=== PATIENT | male | born 1955 | race African-American/Black ===

== ENCOUNTER 2025-08-22 15:49 | Inpatient (IN) | payer OTHER, SELFPAY ==
[2025-08-22] VITALS (10 sets, daily range): BP systolic 134–170; BP diastolic 53–75
--- NOTE | 2025-08-22 12:15 | ED.GENMED ---
History of Present Illness
<KIRSTEN العراقي - Last Filed: 08/22/25 15:37>
General
Chief Complaint: Catheter/Tube Problem
Source: patient
Exam Limitations: none
Time Seen by Provider: 08/22/25 12:06
Nursing documentation reviewed up to this point in time: agreed with
History of Present Illness
History of Present Illness:
Patient is a 69-year-old male past medical history of prostate cancer with prostatectomy radiation followed at [facility], insulin-dependent diabetes hypertension presents to the ER for evaluation. Patient had a catheter placed at [facility].
He reports he has a known stricture. Today he noticed blood around his catheter and pain. Prior to my exam nurse put a 20 [place]ones[place] catheter and however tried to flush it but there was a lot of clotting to the area. Nurse inserted a three-way
catheter while I was doing exam in the room with obvious hematuria. Patient now feels relieved however in his lower abdominal area.
He is not a blood thinners. He denies any fever chills nausea vomiting, back pain. He has urologist outside of this hospital.
Phy Exam
<KIRSTEN العراقي - Last Filed: 08/22/25 15:37>
General Physical Exam
General Presentation: no apparent distress
General age: appears stated age
General Skin: warm and dry
General Habitus: normal
General Mental: alert
General Hydration: appears well hydrated
Gastrointestinal Exam
Gastrointestinal Exam: non tender and soft
Genitourinary Exam Male
Exam Male: other (+ catheter draining gross hematuria )
Neurological Exam
Neurological Exam: alert and oriented x3
Musculoskeletal Exam
Musculoskeletal Exam: full ROM
Skin Exam
Skin Exam: normal color and warm/dry
Psychiatric Exam
Psychiatric Exam: normal mood/affect
Course
<KIRSTEN العراقي - Last Filed: 08/22/25 15:37>
Orders/Labs/Results
Orders:
Orders
08/22/25 11:30
Lidocaine 2% [Lidocaine Uro-Jet 2%] 1 syringe .ROUTE .STK-MED ONE
08/22/25 12:42
Ketorolac [Toradol] 15 mg IV NOW STA
Phenazopyridine HCl [Pyridium] 200 mg PO NOW STA
08/22/25 13:15
Complete Blood Count/With Diff Urgent
Comprehensive Metabolic Panel Urgent
08/22/25 13:18
Morphine Sulfate 2 mg IV NOW STA
08/22/25 13:43
CefTRIAXone [Rocephin] 1,000 mg IV NOW STA
08/22/25 13:52
Sterile Water [Sterile Water For Injection] 10 ml .ROUTE .STK-MED ONE
08/22/25 13:54
Electrocardiogram (*1) Stat
Reason for Study: Abdominal Pain
EKG- Treatment ONCE
0.9% Sodium Chloride 1000 ml [Nss] 1,000 ml IV BOLUS
08/22/25 14:09
Fentanyl Citrate/Pf [Sublimaze] 25 mcg IV [id number] PRN
HYDROmorphone [Dilaudid] 0.25 mg IV PACU-Q5MPRN PRN
HYDROmorphone [Dilaudid] 0.5 mg IV PACU-Q5MPRN PRN
Ondansetron Injectable [Zofran] 4 mg IV PACU-ONCEPRN PRN
Prochlorperazine [Compazine] 5 mg IV PACU-ONCEPRN PRN
Notify MD As Directed
Notify physician if: for SDS patients with known or suspected sleep obstructive sleep apnea, monitor in the
PACU.
Notify MD for any apneic/desaturation episodes
O2 Therapy [RESP] Urgent
Titrate/Wean O2 to maintain O2 sat greater than (%): 92
Special Instructions: -Provide supplemental oxygen to achieve O2 sat of 92% or greater.
-After 15 min, may wean O2 and discontinue if patient is able to maintain O2 sat of 92%
or greater during recovery period.
If patient is a discharge home, without oxygen therapy, notify anestheiologist if
unable to maintain O2 SAT of 92% or greater on room air for MD clearance.
08/22/25 14:15
Normosol (Mult Electrolytes) [Normosol-R/Plasmalyte-A] 1,000 ml IV PER PROTOCOL
08/22/25 Dinner
Clear Liquid
08/22/25 15:32
Admit/Transfer Patient As Directed
Co-Sign Provider:
Level of Care: Inpatient admission
Assign to:: Medical/Surgical
Physician / Group: hospitalist
Diagnosis: hematuria
Reason for Hospitalization: hematuria
Expected length of stay greater than two midnights?: Yes
ELOS- Estimated Length of Stay in days: 3
I certify the patient meets the requirements for IP care: Yes
08/22/25 15:33
HYDROmorphone [Dilaudid] 0.5 mg IV Q3HPRN PRN
diazePAM [Valium Injection] 5 mg IV Q4HPRN PRN
Activity As Directed
Activity Level: Bedrest
Catheter- Indwelling As Directed
Reason for insertion: Urology Determination
Catheter-Hand Irrigation As Directed
Solution:: Sterile 0.9% NaCl
Amount: 100-200cc
Frequency: prn
Reason for hand irrigation: clots/obstruction
Irrigate via:: Catheter directly
Continous Bladder Irrigation As Directed
Solution: Normal Saline
Keep urine: Clear
PRN Pain Medication Management As Directed
May give lesser potent ordered pain med per pt: Yes
preference::
Protocol:: Medication orders for pain may be administered in a
manner that supports deferring to patient preference
when the pt is:
- Requesting an ordered lesser potent pain medication.
Least to most potent pain medications are defined
as: acetaminophen < NSAID < tramadol < opioids
(morphine, oxycodone, hydromorphone).
- Requesting a lesser dose of the same medication IF
ORDERED.
- Requesting a less intrusive route of administration
if both routes are prescribed by the provider (PO <
IV).
08/22/25 15:34
Code Status As Directed
Resuscitation Status: Full Code
08/22/25 15:45
0.9% Sodium Chloride 1000 ml [Nss] 1,000 ml IV 80 mls/hr
08/22/25 16:00
CefTRIAXone [Rocephin] 1,000 mg IV Q24H
08/22/25 20:00
Docusate Sodium [Colace] 100 mg PO BID
08/23/25 06:00
Basic Metabolic Panel IN AM
Complete Blood Count/No Diff IN AM
08/23/25 08:00
Tamsulosin [Flomax] 0.4 mg PO DAILY
Abnormal Lab Results
08/22/25
13:15
RBC 4.62 L 10^6/uL
(4.70-6.10)
Hgb 12.3 L g/dL
(13.0-18.0)
Hct 36.9 L %
(39.0-52.0)
MCV 79.9 L fL
(80.0-94.0)
MCH 26.6 L pg
(27.0-31.0)
MPV 10.8 H fL
(7.4-10.4)
Abs Immat Gran (auto) 0.1 H 10^3/uL
(0-0.05)
Absolute Neuts (auto) 7.2 H 10^3/uL
(1.4-6.5)
Absolute Monos (auto) 1.2 H 10^3/uL
(0.1-0.6)
Immature Gran % 0.9 H %
(0-0.5)
Lymphocytes % 15.1 L %
(20.5-51.1)
Monocytes % 11.8 H %
(1.7-9.3)
Glucose 133 H mg/dl
(70-99)
08/22/25 13:15
08/22/25 13:15
Vital Signs
Initial and Last Documented VS:
Initial Vital Signs
Temp Pulse Resp BP Pulse Ox
97.4 F 95 20 170/74 100
08/22/25 09:18 08/22/25 09:18 08/22/25 09:18 08/22/25 09:18 08/22/25 09:18
Last Documented Vital Signs
Temp Pulse Resp BP Pulse Ox
97.4 F 95 20 170/74 100
08/22/25 09:18 08/22/25 09:18 08/22/25 09:18 08/22/25 09:18 08/22/25 12:17
Nuclear Medicine Technologist consulted with Physician
Nuclear Medicine Technologist consulted with physician?: Yes
Name of Physician Consulted: DR Manriquez
<Philly Manriquez, DO - Last Filed: 08/22/25 14:12>
Orders/Labs/Results
Orders:
Orders
08/22/25 11:30
Lidocaine 2% [Lidocaine Uro-Jet 2%] 1 syringe .ROUTE .STK-MED ONE
08/22/25 12:42
Ketorolac [Toradol] 15 mg IV NOW STA
Phenazopyridine HCl [Pyridium] 200 mg PO NOW STA
08/22/25 13:15
Complete Blood Count/With Diff Urgent
Comprehensive Metabolic Panel Urgent
08/22/25 13:18
Morphine Sulfate 2 mg IV NOW STA
08/22/25 13:43
CefTRIAXone [Rocephin] 1,000 mg IV NOW STA
08/22/25 13:52
Sterile Water [Sterile Water For Injection] 10 ml .ROUTE .K-MED ONE
08/22/25 13:54
Electrocardiogram (*1) Stat
Reason for Study: Abdominal Pain
EKG- Treatment ONCE
0.9% Sodium Chloride 1000 ml [Nss] 1,000 ml IV BOLUS
08/22/25 14:09
Fentanyl Citrate/Pf [Sublimaze] 25 mcg IV [id number] PRN
HYDROmorphone [Dilaudid] 0.25 mg IV PACU-Q5MPRN PRN
HYDROmorphone [Dilaudid] 0.5 mg IV PACU-Q5MPRN PRN
Ondansetron Injectable [Zofran] 4 mg IV PACU-ONCEPRN PRN
Prochlorperazine [Compazine] 5 mg IV PACU-ONCEPRN PRN
Notify MD As Directed
Notify physician if: for SDS patients with known or suspected sleep obstructive sleep apnea, monitor in the
PACU.
Notify MD for any apneic/desaturation episodes
O2 Therapy [RESP] Urgent
Titrate/Wean O2 to maintain O2 sat greater than (%): 92
Special Instructions: -Provide supplemental oxygen to achieve O2 sat of 92% or greater.
-After 15 min, may wean O2 and discontinue if patient is able to maintain O2 sat of 92%
or greater during recovery period.
If patient is a discharge home, without oxygen therapy, notify anestheiologist if
unable to maintain O2 SAT of 92% or greater on room air for MD clearance.
08/22/25 14:15
Normosol (Mult Electrolytes) [Normosol-R/Plasmalyte-A] 1,000 ml IV PER PROTOCOL
08/22/25 Dinner
Clear Liquid
08/22/25 15:32
Admit/Transfer Patient As Directed
Co-Sign Provider:
Level of Care: Inpatient admission
Assign to:: Medical/Surgical
Physician / Group: hospitalist
Diagnosis: hematuria
Reason for Hospitalization: hematuria
Expected length of stay greater than two midnights?: Yes
ELOS- Estimated Length of Stay in days: 3
I certify the patient meets the requirements for IP care: Yes
08/22/25 15:33
HYDROmorphone [Dilaudid] 0.5 mg IV Q3HPRN PRN
diazePAM [Valium Injection] 5 mg IV Q4HPRN PRN
Activity As Directed
Activity Level: Bedrest
Catheter- Indwelling As Directed
Reason for insertion: Urology Determination
Catheter-Hand Irrigation As Directed
Solution:: Sterile 0.9% NaCl
Amount: 100-200cc
Frequency: prn
Reason for hand irrigation: clots/obstruction
Irrigate via:: Catheter directly
Continous Bladder Irrigation As Directed
Solution: Normal Saline
Keep urine: Clear
PRN Pain Medication Management As Directed
May give lesser potent ordered pain med per pt: Yes
preference::
Protocol:: Medication orders for pain may be administered in a
manner that supports deferring to patient preference
when the pt is:
- Requesting an ordered lesser potent pain medication.
Least to most potent pain medications are defined
as: acetaminophen < NSAID < tramadol < opioids
(morphine, oxycodone, hydromorphone).
- Requesting a lesser dose of the same medication IF
ORDERED.
- Requesting a less intrusive route of administration
if both routes are prescribed by the provider (PO <
IV).
08/22/25 15:34
Code Status As Directed
Resuscitation Status: Full Code
08/22/25 15:45
0.9% Sodium Chloride 1000 ml [Nss] 1,000 ml IV 80 mls/hr
08/22/25 16:00
CefTRIAXone [Rocephin] 1,000 mg IV Q24H
08/22/25 20:00
Docusate Sodium [Colace] 100 mg PO BID
08/23/25 06:00
Basic Metabolic Panel IN AM
Complete Blood Count/No Diff IN AM
08/23/25 08:00
Tamsulosin [Flomax] 0.4 mg PO DAILY
Abnormal Lab Results
08/22/25
13:15
RBC 4.62 L 10^6/uL
(4.70-6.10)
Hgb 12.3 L g/dL
(13.0-18.0)
Hct 36.9 L %
(39.0-52.0)
MCV 79.9 L fL
(80.0-94.0)
MCH 26.6 L pg
(27.0-31.0)
MPV 10.8 H fL
(7.4-10.4)
Abs Immat Gran (auto) 0.1 H 10^3/uL
(0-0.05)
Absolute Neuts (auto) 7.2 H 10^3/uL
(1.4-6.5)
Absolute Monos (auto) 1.2 H 10^3/uL
(0.1-0.6)
Immature Gran % 0.9 H %
(0-0.5)
Lymphocytes % 15.1 L %
(20.5-51.1)
Monocytes % 11.8 H %
(1.7-9.3)
Glucose 133 H mg/dl
(70-99)
08/22/25 13:15
08/22/25 13:15
Vital Signs
Initial and Last Documented VS:
Initial Vital Signs
Temp Pulse Resp BP Pulse Ox
97.4 F 95 20 170/74 100
08/22/25 09:18 08/22/25 09:18 08/22/25 09:18 08/22/25 09:18 08/22/25 09:18
Last Documented Vital Signs
Temp Pulse Resp BP Pulse Ox
97.4 F 95 20 170/74 100
08/22/25 09:18 08/22/25 09:18 08/22/25 09:18 08/22/25 09:18 08/22/25 12:17
<KIRSTEN العراقي - Last Filed: 08/22/25 15:37>
MDM/Problems Addressed
Differential Diagnosis Includes:
not limited to: urinary retention, hematuria, UTI
MDM/Problems Addressed:
Patient is a 6-year-old male history of prostate cancer followed at [facility] [place] [facility] diabetes presents with a Ingram in place history of stricture presents for hematuria clotting bladder retention despite Ingram catheter. Three-way Ingram was inserted
however despite manual irrigation patient keeps clotting urine unable to pass. Patient denies any fever or chills he is afebrile here. Case reviewed urology Dr. Flores who evaluated patient at bedside. As per urology patient will need to go to the
OR for clot evacuation cystoscopy. IV Rocephin ordered as per urology patient is afebrile with a normal white count stable him in a 12.3 he is not anticoagulated, normal chemistries.
<KIRSTEN العراقي - Last Filed: 08/22/25 15:37>
*Pulse Oximetry
SaO2: 100
Oxygen Mode of Delivery: Room air
Patient hypoxic: no
*Critical Care Note
Total Time (30-74mins, 75-104mins- exclusive of procedures): Not Applicable
<KIRSTEN العراقي - Last Filed: 08/22/25 15:37>
Patient Management
Discussion with other providers: Sales Representative [employer]ing [employer] (DR Ansari )
ED Attending Note
<KIRSTEN العراقي - Last Filed: 08/22/25 15:37>
-
Portions of this chart may have been created with voice recognition software.� Occasional wrong word or��sound alike� substitutions may have occurred due to the inherent limitations of voice recognition software.
<Philly Manriquez DO - Last Filed: 08/22/25 14:12>
ED Attending Note
Patient seen and examined by attending physician: Yes
I performed the substantive portion of visit, reviewed & personally made and approve the management plan that is documented in note by myself or MONO.: Yes
I performed a history and physical exam of patient and discussed management with resident, I reviewed resident's note and agree with documented findings and plan of care.: Yes
ED Attending Note:
69-year-old male with history of prostate cancer status post radiation with known history of urethral stricture presenting to the emergency department for hematuria. Patient reports a week ago he went to [place] and had a catheter placed. Does
note that he was started on some medication at that time. He is not on any blood thinners. Today noticed that he was having blood from the urine. He was also decreased output from the catheter with discomfort. Vital signs on arrival significant
for hypertension.
On exam, patient is in no acute distress. Noted to have significant hematuria in Ingram catheter bag. Initially seen and evaluated by nurse practitioner. Catheter was replaced for CBI due to concern of obstruction from blood clot and incomplete
emptying. Per nursing staff, difficulty with evacuation of clots despite multiple attempts at irrigation. CBI was subsequently stopped and case discussed with urology. Urology to bedside, was able to evacuate some more clots, however ultimately
secondary to amount of bleeding that patient is having with degree of clotting, recommending operative management. Patient at this time is hemodynamically stable, reassuring hemoglobin. Patient is in agreement with plan, starting antibiotics and
taking to the OR for urgent management with subsequent hospitalist admission for continued hemodynamic monitoring and urine output monitoring
Discharge Plan
Departure
Patient Disposition: Admit
Date of Disposition: 08/22/25
Time of Disposition: 13:49
Admit to: Med/Surg
Admit to doctor: hospitalist
Presentation/result/management discussed w/ accepting MD/DO: Hospitalist
Patient with high blood pressure during this ER visit?: Yes
Condition: Fair
Covid-19: Not Applicable
Discharge Problem:
Hematuria
Interventions
Interventions:
*Risk Screen - Suicide Last Done: 08/22/25 09:18
*General Assessment Last Done: 08/22/25 09:18
*Neglect/Abuse Screening Last Done: 08/22/25 09:18
*Nursing Disposition Last Done: 08/22/25 14:32
OK-Kzzdmw-Icshhjbxqy Assessment Last Done: 08/22/25 12:20
ED-Male Genitourinary Assessment Last Done: 08/22/25 12:20
[2025-08-22] MEDS: MORPHINE SULFATE 2 MG IV (13:20)
[2025-08-22 13:22] LABS: Hematocrit 36.9 % (39.0-52.0); Hemoglobin 12.3 g/dL (13.0-18.0); Mean Corp Hgb Conc. 33.3 g/dL (33.0-37.0); Mean Corpuscular Volume 79.9 fL (80.0-94.0); Nucleated Red Blood Cells % 0 % (-); Platelet Count 275 10^3/uL (130-400); Red Cell Dist. Width 13.4 % (11.5-14.5)
[2025-08-22 13:38] LABS: ALT (SGPT) 18 U/L (0-50); AST (SGOT) 20 U/L (17-59); Albumin 3.9 g/dl (3.5-5.0); Alkaline Phosphatase 81 U/L (38-126); Blood Urea Nitrogen 17 mg/dl (9-20); Calcium 9.3 mg/dl (8.4-10.2); Carbon Dioxide 24 mmol/L (22-30); Chloride 106 mmol/L (98-107); Glucose 133 mg/dl (70-99); Potassium 4.4 mmol/L (3.5-5.1); Sodium 136 mmol/L (135-145); Total Protein 7.2 g/dl (6.3-8.2); eGFR > 60.00
--- NOTE | 2025-08-22 13:47 | CON.MD ---
Consultation - Medical
-
see dictated note
pt with hx of RRP with dr falcon and subsequent XRT- known stx
has been in and out of [place] with difficulty urinating- never been to [facility]
danielle has been in- today developed gross hematuria and clot obstruction
unable to clear clot in ER and initiate CBI
to OR for clot evac
high risk nature of procedure reviewed [facility] since we have no records and pt very poor historian
Consultation
-
Date/Time Consultation Requested: 08/22/25 at 1:30
Date/Time Consultation Performed: 08/22/25 at 1:30
Requesting Provider: ER
Performing Provider: Dr Ansari
Reason for Consultation: clot retention
[2025-08-22] MEDS: ROCEPHIN 1000 MG IV (14:01)
[2025-08-22] MEDS: NSS 1000 IV ×2 (14:02→17:54)
--- NOTE | 2025-08-22 14:44 | HPS.HSE ---
Addendum entered and electronically signed by Richard Hunter MD 08/22/25 18:06:
This is an addendum to the H&P written by Chelsey Allison on 08/14/2025. �Patient seen and examined independently with resident.
69-year-old male past medical history of prostate cancer status post prostatectomy in 2012 and radiation, BPH, urinary retention with Danielle placed last week, hypertension, diabetes, hyperlipidemia, presenting with hematuria with suprapubic pain.
�Danielle catheter was obstructed with clot.
Danielle catheter was changed in emergency room. �CBI was unable to performed. �Patient was taken to the operating room for clot evacuation with resolution of hematuria. Now on CBI with some intermittent redness.�
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 �Check urinalysis. �Urology following.
Original Note:
Family Physician
-
Family Physician:
Chief Complaint
-
hematuria
History of Present Illness
Patient is a 69-year-old male past medical history of prostate cancer with prostatectomy and radiation followed at [place], insulin-dependent diabetes hypertension presents to the ER for evaluation for hematuria. He was dx with prostate cancer in
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 Last radiation in April 2025. Patient is under care of urologist at [facility], hx of radical prostatectomy and has undergone subsequent XRT. He has been in and out of [facility]
because of urinary difficulty. Patient notes that today he noticed blood around his catheter and was experiencing pain. In the ED catheter was placed with obvious gross hematuria and clot obstruction. He is not on AC. Denies dizziness, headache,
shortness of breath. Patient was seen by urologist in the ED and they were unable to clear the clot in the ER or initiate CBI. Patient was taken to the OR for clot evacuation.
Medical History
Past Medical History
Past Medical History: Reports Other (prostate cancer with prostatectomy radiation followed at [facility], insulin-dependent diabetes hypertension )
Past Surgical History: Reports Other (XRT )
Social History
Tobacco: Non-smoker
Alcohol: None
Drug: None
Employment: Retired
Family History
Family History: Not pertinent
Allergies / Home Medications
Allergies reflects when Allergies were last updated in [employer].
Home Medications with original date entered in [employer]
Allergy/Medication List:
Allergies
Allergy/AdvReac Type Severity Reaction Status Date / Time
No Known Allergies Allergy Verified 08/22/25 09:22
Review of Systems
-
History Source: Patient
A 12 point ROS was completed and negative except as noted: Yes
Physical Exam
Vital Signs
Vital Signs
Temp Pulse Resp BP Pulse Ox
97.4 F 95 20 170/74 100
08/22/25 09:18 08/22/25 09:18 08/22/25 09:18 08/22/25 09:18 08/22/25 12:17
Physical Exam
General: Comfortable and Conversant
HEENT: NormoCephalic and Anicteric
Respiratory: Clear
Cardiac: S1/S2 and Regular Rhythm
GI: Soft, Non Tender and Non Distended
Genito-urinary: Danielle (hematuria and clots )
Skin: Warm and Dry
Neuro: AO x 3
Hematologic/Lymphatic: No Lymphadenopathy
Psych: Calm
Laboratory Results
-
08/22/25 13:15
08/22/25 13:15
Laboratory Results
Total Bilirubin 0.6 mg/dl (0.2-1.3) 08/22/25 13:15
AST 20 U/L (17-59) 08/22/25 13:15
ALT 18 U/L (0-50) 08/22/25 13:15
Alkaline Phosphatase 81 U/L (38-126) 08/22/25 13:15
Data Reviewed
-
Lab Data: Labs Reviewed by me and Discussed with Physician
Impression/Plan
-
IMPRESSION:
Hematuria
Acute on chronic urinary retention
History of prostate cancer
History of hypertension
PLAN:
Hematuria
History of XRT for prostate cancer
Suspect injury from Danielle catheter vs radiation complication vs mass.
Hemodynamically stable. HB 12.3 (no records of previous labs)
Danielle placed in ED, +gross hematuria and clots
Failed to evacuate the clots and initiate CBI
Urologist aware. Pt taken to OR for clot evacuation
Monitor H&H
Transfuse PRBC if sudden drop in hemoglobin
IV dilauded for pain control
Check UA
Acute on chronic urinary retention on chronic danielle
ER placed in the ED
Continue oxybutynin, tamsolusin post surgery
Monitor urine output
History of prostate cancer
Last radiation in Apr 2025 at [facility]
History of HLD
Continue lipitor
Hypertension
continue valsartan
Type 2 DM
Hold metformin
Sliding scale
SCD
Full code
Diabetic diet
--- NOTE | 2025-08-22 15:30 | W.IMMPOSTOP ---
Surgical Immed Post Op Note
-
Primary Surgeon:
yg
Assisting Surgeon:
Pre-op Diagnosis:
clot retention
Post-op Diagnosis:
clot retention due to xrt cystitis
Procedure Performed:
cysto/clot evac/fulguration
Anesthesia Type:
gen
Specimen / Cultures:
none
Estimated Blood Loss:
250cc- 200 cc of old clot
Complications:
none
Operative Findings:
dilated BN contracture/multiple bleeding sites/large amount of clot
to pacu- imu in stable condition
[2025-08-22 15:41] LABS: Glucose - Point of Care 92 mg/dl (70-99)
--- NOTE | 2025-08-22 17:20 | W.PN.UPDATE ---
Update Note
Progress Note Update
Saw patient in PACU, 200-250 cc of old clot evacuated, tolerated the surgery well. Transferred patient to IMU from PACU. CBI has been initiated. [place] tinge urine draining in danielle bag. Hemodynamically stable. Monitor HH. IV Dilaudid for pain prn
for pain control.
--- NOTE | 2025-08-22 17:30 | PTCARENOTE ---
Patient received from PACU. VICKI VERMA. Admission done and 2 RN skin check performed. Admission done, patient with home meds instructed to send home with daughter. Three way danielle in place, CBI running. Fruit punch colored urine, titrating CBI to
clear out blood tinged. NSS @ 100mL/hr. ABX to continue tomorrow. Call rg in reach.
[2025-08-22] MEDS: DILAUDID 0.5 MG IV ×2 (17:54→23:51)
[2025-08-22] MEDS: VALIUM INJECTION 5 MG IV (21:13)
[2025-08-22] MEDS: COLACE 100 MG PO (21:13)
[2025-08-22 21:52] LABS: Glucose - Point of Care 186 mg/dl (70-99)
[2025-08-23] VITALS (12 sets, daily range): BP systolic 100–141; BP diastolic 48–72
--- NOTE | 2025-08-23 01:04 | PTCARENOTE ---
Assumed care of Pt from day RN, walking rounds done CBI flowing nicely with light punch color no clots at that time. Shortly after Pt having complaints of feeling like his bladder was full and he 'had to pee'. CBI slow flowing with darker red
output. CBI flushed per protocol, one long clot expelled. CBI bag opened to flush and keep line patent. Pt given PRN medication for spasm and pain. Assessments to follow, Pt CBI remains patent at this time with lightly ping tinge no clots seen at
this time. Pt appearing to be resting comfortable at this time. respiration even unlabored.
[2025-08-23] MEDS: VALIUM INJECTION 5 MG IV ×5 (01:34→20:35)
[2025-08-23] MEDS: DILAUDID 0.5 MG IV ×3 (02:54→23:20)
[2025-08-23] MEDS: NSS 1000 IV (02:54)
--- NOTE | 2025-08-23 03:58 | PTCARENOTE ---
Pt having pain and discomfort at times. PRN medication given per orders. Assessment care and vitals as charted.
[2025-08-23 05:40] LABS: Hematocrit 29.7 % (39.0-52.0); Hemoglobin 9.5 g/dL (13.0-18.0); Mean Corp Hgb Conc. 32.0 g/dL (33.0-37.0); Mean Corpuscular Volume 81.4 fL (80.0-94.0); Nucleated Red Blood Cells % 0 % (-); Platelet Count 238 10^3/uL (130-400); Red Cell Dist. Width 13.3 % (11.5-14.5)
[2025-08-23 05:43] LABS: Blood Urea Nitrogen 13 mg/dl (9-20); Calcium 8.5 mg/dl (8.4-10.2); Carbon Dioxide 26 mmol/L (22-30); Chloride 106 mmol/L (98-107); Estimated Creatinine Clearance 73 ml/min; Glucose 134 mg/dl (70-99); Potassium 4.8 mmol/L (3.5-5.1); Sodium 135 mmol/L (135-145); eGFR > 60.00
--- NOTE | 2025-08-23 06:28 | W.PN.URO.CBU ---
Today's Communication / Plan
-
continue CBI
Assessment / Plan
-
met prostate cancer
retention/hematuria and xrt cystitis
pt's urine was clear after procedure- now again with hematuria- not uncommon with xrt
will continue cbi/antibx/hold any blood thinners
trend hgb and wbc
if hematuria continues over next 24-48hrs- would attempt repeat cysto and fulguration- will make npo after midnight tonight
check psa with am labs
Diagnosis
-
Date of Service: August 23, 2025
-
Patient Diagnosis:
xrt cystitis/hematuria
met prostate cancer
Post Op Day:
cysto/clot evac and fulguration 08/22
Subjective
-
pt comfortable but occ spasms
urine was clear in pacu- last evening again developed hematuria
wbc up/hgb down
Objective
-
Vital Signs
Temp Pulse Resp BP Pulse Ox
98.5 F 65 16 126/59 97
08/23/25 03:00 08/23/25 04:00 08/23/25 04:00 08/23/25 04:00 08/23/25 04:00
Intake and Output
08/21/25 08/22/25 08/23/25
06:59 06:59 06:59
Intake Total 580 / 580
Output Total 950 / 950
Balance -370 / -370
Intake:
Oral fluids 480 / 480
IV fluids (Total) 100 / 100
NSS 100 / 100
Output:
Urine, Danielle 300 / 300
True Urine Output from CBI 650 / 650
Laboratory Results
08/23/25 04:40
08/23/25 04:40
Review of Systems
-
Constitutional: Fatigue
Respiratory: No Symptoms
Cardiac: No Symptoms
Abdomen/GI: No Symptoms
: Other (hematuria and bladder spasms)
Physical Exam
-
General - no acute distress
Abdomen - soft, non-tender
Genitalia - [address]
--- NOTE | 2025-08-23 07:27 | PTCARENOTE ---
Dr Ansari at bed side during morning rounds, updates from slot shift supervisor given. Pt CBI to continue at this time. Pt CBI putting out red/punch to light punch color with 1-2 clots over night. Pt now on regular diet will be NPO at midnight incase
'hematuria continues over next 24-48hrs- would attempt repeat cysto and fulguration' Per Dr Ansari's report. Pt H&H dropping this AM. Dr. Ansari and KIRSTEN made aware, IVF stopped.
[2025-08-23 07:56] LABS: Glucose - Point of Care 128 mg/dl (70-99)
[2025-08-23] MEDS: NOVOLOG FLEXPEN-LOW RESISTANCE SC ×2 (07:58→16:57)
[2025-08-23 08:11] LABS: Iron 45 ug/dl (49-181)
[2025-08-23 08:20] LABS: Total Iron Binding Capacity 271 ug/dl (261-462)
--- NOTE | 2025-08-23 08:23 | W.PN.HOSP.TC ---
Today's Communication/Plan
-
see PN
Assessment / Plan
Assessment / Plan
69yo M with PMHx of DM, HTN, HLD, prostate CA s/p resection appr 10 years ago, then recurrence and RT course in april 2025 developed acute urinary retention, that initially self resolved while admitted to [place] 1 week ago, then redeveloped it at
home and had Jimenez placed in [place]. Later noticed absent flow in Jimenez and urine coming out around it with subsequent beeding, so can back to the hospital, was started on Keflex, however due to continued symptoms presented to ED. found
hematuria with clot obstructing Jimenez. Catheter replaced and CBI started. Had cystoscopy on admission on 08/23/25 with clot evacuation and fulguration of bleeding points.
A/P:
#Acute urinary retention
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
#Possible CAUTI
UA still pending
CBI as per Urology
Watch for catheter drain, if continues to bleed or re-obstrcution - then might need repeated cystoscopy as per Urology
Serial H&H and transfuse as needed
COnt Ceftriaxone
Pyridium and Oxybutinin due to bladder spasms and pain
Tamsulosin
#ANJU
IV iron
#HLD
#Essential HTN
cont home meds
#DM type 2 with unspecified complications
Accuchecks, Insulin SS, DM diet
hold metformin
DVT ppx SCDs
FUll code
I have spent at least 58min reviewing chart, test results, communication with consultants and providing direct patient care
Anticipated Discharge: > 48 hours
Subjective/Interval History
-
Date of Service: August 23, 2025
Objective Data
-
Labs:
Laboratory Results
08/23/25 08/23/25
04:40 18:00
WBC 15.5 H
Hgb 9.5 L D Pending
Hct 29.7 L Pending
Plt Count 238
Sodium 135
Potassium 4.8
Chloride 106
Carbon Dioxide 26
BUN 13
Creatinine 1.0
Glucose 134 H
Calcium 8.5
Vital Signs:
Vital Signs
Temp Pulse Resp BP Pulse Ox
97.9 F 76 17 100/48 94
08/23/25 07:12 08/23/25 06:00 08/23/25 06:00 08/23/25 06:00 08/23/25 06:00
I&O
08/22/25 08/23/25 08/24/25
06:59 06:59 06:59
Intake Total 3180 / 3180
Output Total 950 / 950
Balance 2230 / 2230
Review of Systems
-
History Source: Patient
All other systems: Reviewed and negative
Genitourinary: Reports Bleeding and Other (bladder spasms and pain)
Physical Exam
-
General: No Apparent Distress and Comfortable
HEENT: Normocephalic
Respiratory: Clear to Auscultation
Cardiac: Regular Rhythm
Genito-urinary: Bloody Urine and Continuous Bladder Irrigation
Skin: Warm
Neuro: Awake, Alert, Oriented and AO x 3
Psych: Calm
[2025-08-23] MEDS: FLOMAX 0.4 MG PO (08:35)
[2025-08-23] MEDS: COLACE 100 MG PO ×2 (08:35→20:34)
[2025-08-23] MEDS: LIPITOR 20 MG PO (08:35)
[2025-08-23] MEDS: DIOVAN 160 MG PO (08:35)
--- NOTE | 2025-08-23 08:55 | PTCARENOTE ---
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 Patient resting comfortably in bed. AAO, VSS. No events noted overnight. Complaints of intermittent pain at this time around the bladder, see NOV. CBI running at a fast steady rate but continues with clots and
the need for periodic irrigation. NSS discontinued. Patient started on regular diet. With current trend, for possible OR again in the AM for reinspection. No other testing scheduled at this time. Call rg in reach.
[2025-08-23 09:22] LABS: Glycohemoglobin (HgbA1c) 7.0 % (4.0-5.9)
[2025-08-23 09:35] LABS: Ferritin 53.1 ng/ml (17.9-464.0)
[2025-08-23 10:06] LABS: Folate 7.1 ng/ml (2.76-20); Vitamin B12 245 pg/ml (239-931)
[2025-08-23 12:00] LABS: Glucose - Point of Care 181 mg/dl (70-99)
[2025-08-23] MEDS: NOVOLOG FLEXPEN-LOW RESISTANCE 1 UNITS SC (13:56)
[2025-08-23] MEDS: FERRLECIT 110 MG IV (13:56)
[2025-08-23] MEDS: ROCEPHIN 1000 MG IV (13:56)
[2025-08-23] MEDS: STERILE WATER FOR INJECTION 10 ML IV (13:57)
[2025-08-23 17:03] LABS: Glucose - Point of Care 116 mg/dl (70-99)
[2025-08-23 18:25] LABS: Hematocrit 29.0 % (39.0-52.0); Hemoglobin 9.4 g/dL (13.0-18.0)
[2025-08-23] MEDS: FLUSH (NSS) 2 FLUSH IV (19:08)
[2025-08-23] MEDS: DITROPAN 5 MG PO (20:34)
[2025-08-23 21:46] LABS: Glucose - Point of Care 160 mg/dl (70-99)
--- NOTE | 2025-08-23 23:49 | PTCARENOTE ---
Pt c/o pain/pressure in bladder. 3way danielle draining well. Urine punch colored with orange hues from pyridium. Pain relieved with IV valium. IV dilaudid given for breakthrough pain.
[2025-08-24] VITALS (16 sets, daily range): BP systolic 20–151; BP diastolic 49–66
[2025-08-24] MEDS: VALIUM INJECTION 5 MG IV (02:14)
[2025-08-24 02:46] LABS: Hematocrit 27.8 % (39.0-52.0); Hemoglobin 9.1 g/dL (13.0-18.0)
[2025-08-24] MEDS: DILAUDID 0.5 MG IV ×2 (03:15→22:38)
[2025-08-24 03:43] LABS: PSA, Total - Diagnostic < 0.06 ng/ml (0.0-4.0)
--- NOTE | 2025-08-24 07:38 | W.PN.URO.CBU ---
Today's Communication / Plan
-
CT and OR
Assessment / Plan
-
met prostate cancer
retention/hematuria and xrt cystitis
pt's urine was clear after procedure- now again with hematuria- not uncommon with xrt
slow drift of hgb- no need for acute transfusion now- but likely will be needed
reviewed options with pt- for CT this am and return to OR for repeat attempt at fulguration- if this is unsuccesful- may need to consider transfer to [facility]
discussed again difficult nature of his condition along with risks, benefits and alternatives
Diagnosis
-
Date of Service: August 24, 2025
-
Patient Diagnosis:
xrt cystitis/hematuria
met prostate cancer
Post Op Day:
cysto/clot evac and fulguration 08/22
Subjective
-
pt urine remains bloody on high rate cbi
hgb with slow drift down
still with sig bladder spasms- discomfort
Objective
-
Vital Signs
Temp Pulse Resp BP Pulse Ox
97.9 F 86 21 114/57 94
08/24/25 07:20 08/23/25 22:00 08/23/25 22:00 08/23/25 22:00 08/24/25 01:05
Intake and Output
08/23/25 08/24/25 08/25/25
06:59 06:59 06:59
Intake Total 3180 / 3180 1310 / 1310
Output Total 950 / 950 2500 / 2500 -540 / -540
Balance 2230 / 2230 -1190 / -1190 540 / 540
Intake:
Oral fluids 1680 / 1680 1200 / 1200
IV fluids (Total) 1500 / 1500
NSS 100 / 100
IV piggybacks 110 / 110
Output:
Urine, Ingram 300 / 300
True Urine Output from I 650 / 650 2500 / 2500 -540 / -540
Laboratory Results
08/23/25 04:40
Review of Systems
-
Constitutional: Fatigue
Respiratory: No Symptoms
Cardiac: No Symptoms
Abdomen/GI: Abdominal Pain (spasms)
Physical Exam
-
General - no acute distress
Abdomen -obese- nontender
[2025-08-24] MEDS: VITAMIN B-12 1000 MCG PO (07:44)
[2025-08-24] MEDS: DIOVAN 160 MG PO (07:44)
[2025-08-24] MEDS: DITROPAN 5 MG PO ×2 (07:44→19:06)
[2025-08-24] MEDS: COLACE 100 MG PO ×2 (07:44→19:06)
[2025-08-24] MEDS: FLOMAX 0.4 MG PO (07:45)
[2025-08-24] MEDS: LIPITOR 20 MG PO (07:45)
[2025-08-24 07:55] LABS: Glucose - Point of Care 144 mg/dl (70-99)
[2025-08-24] MEDS: NOVOLOG FLEXPEN-LOW RESISTANCE SC ×2 (08:30→13:43)
--- NOTE | 2025-08-24 08:31 | PTCARENOTE ---
Pt AAAOx3,lungs diminished on 1 liter at 95%. 24 3 [address] with CBI at bag 30 light punch color, pt denies pain at this time. Pills given with sip of water. To CT scan and back. Awaiting OR
--- NOTE | 2025-08-24 09:36 | W.PN.UPDATE ---
Update Note
Progress Note Update
pt went for AM CT
unfortunately reveals suspected bladder perforation
reviewed with pt- proceed to OR for cysto and prob open exploration
very high risk nature of this procedure reviewed including
[2025-08-24 09:54] LABS: Hematocrit 28.3 % (39.0-52.0); Hemoglobin 9.2 g/dL (13.0-18.0)
--- NOTE | 2025-08-24 10:06 | PTCARENOTE ---
Pt twas taken to PACU in bed with monitors. [place]inoy in cup in belongings [facility]. Pt stated that braclet in r hand can not be removed
--- NOTE | 2025-08-24 10:34 | W.PN.HOSP.TC ---
Today's Communication/Plan
-
cont Ceftriaxone pending OR
ICU
serial H&H
Assessment / Plan
Assessment / Plan
69yo M with PMHx of DM, HTN, HLD, prostate CA s/p resection appr 10 years ago, then recurrence and RT course in april 2025 developed acute urinary retention, that initially self resolved while admitted to [place] 1 week ago, then redeveloped it at
home and had Jimenez placed in [place]. Later noticed absent flow in Jimenez and urine coming out around it with subsequent beeding, so can back to the hospital, was started on Keflex, however due to continued symptoms presented to ED. found
hematuria with clot obstructing Jimenez. Catheter replaced and CBI started. Had cystoscopy on admission on 08/23/25 with clot evacuation and fulguration of bleeding points, later found Acute retroperitoneal urinary bladder rupture
A/P:
#Acute urinary retention
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
#Possible CAUTI
#Acute retroperitoneal urinary bladder rupture
CT on 08/24/25 - with a large amount of air and a small amount of fluid in the extraperitoneal space anterior to the urinary bladder tracking anteriorly and superiorly to the umbilicus along the median umbilical ligament (urachus).
To OR as per Urology. ICU afterwards
Serial H&H and transfuse as needed
COnt Ceftriaxone
Pyridium and Oxybutynin due to bladder spasms and pain
Tamsulosin
#ANJU
IV iron
#HLD
#Essential HTN
cont home meds
#DM type 2 with unspecified complications
Accuchecks, Insulin SS, DM diet
hold metformin
#b/l gynecomastia
advise weight loss
#bl adrenal adenoma
outpatient w/u for hormonal excess
#Diverticulosis w/o diverticulitis
high fiber diet
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
measuring 2.6 x 1.3 x 1.8 cm in size which could be a bone infarct
DVT ppx SCDs
FUll code
I have spent at least 60min critical care time reviewing chart, test results, communication with consultants and providing direct patient care
Anticipated Discharge: > 48 hours
Subjective/Interval History
-
Date of Service: August 24, 2025
Objective Data
-
Labs:
Laboratory Results
08/24/25 08/24/25 08/24/25
02:28 09:49 18:00
Hgb 9.1 L 9.2 L Pending
Hct 27.8 L 28.3 L Pending
Vital Signs:
Vital Signs
Temp Pulse Resp BP Pulse Ox
97.9 F 91 26 151/66 94
08/24/25 07:20 08/24/25 08:00 08/24/25 08:00 08/24/25 08:00 08/24/25 08:59
I&O
08/23/25 08/24/25 08/25/25
06:59 06:59 06:59
Intake Total 3180 / 3180 1310 / 1310
Output Total 950 / 950 2500 / 2500 -40 / -40
Balance 2230 / 2230 -1190 / -1190 40 / 40
Review of Systems
-
History Source: Patient
All other systems: Reviewed and negative
Abdomen/GI: Reports Abdominal Pain
Physical Exam
-
General: No Apparent Distress
HEENT: Normocephalic
GI: Soft, Tender and Distended
Musculoskeletal: No Clubbing, No Cyanosis and No Edema
Neuro: Awake, Alert, Oriented and AO x 3
Psych: Calm
[2025-08-24 11:06] LABS: B.E. - POC -2.2 mmol/L; Glucose - POC 144 mg/dl (70-99); HCO3 - POC 22 mmol/L (21-28); Hematocrit - POC 25 % PCV (42-52); Hemodilution- POC No; Hemoglobin Calculated - POC 8.6; Ionized Calcium - POC 1.25 mmol/L (1.15-1.33); Lactate - POC 1.06 mmol/L (0.36-0.75); O2 Saturation %Calculated-POC 99.4 % (94-98); PCO2 - POC 37 mmHg (35-48); PO2 - POC 154 mmHg (83-108); Potassium - POC 3.8 mmol/L (3.5-5.1); Sodium - POC 136 mmol/L (136-145); Specimen Type - POC Arterial; pH - POC 7.39 (7.35-7.45)
--- NOTE | 2025-08-24 11:30 | CON.INTV ---
Consultation
Consultation Request
Date/Time Consultation Requested: 08/24/2025928
Date/Time Consultation Performed: 08/24/2025957
Requesting Provider: Dr. Lazar
Performing Provider: Dr. Whaley
Reason for Consultation: Bladder perforation
Medical History
-
Chief Complaint: Bleeding around Ingram catheter with pain
History of Present Illness:
69-year-old male with a past medical history of DM type II, hypertension, hyperlipidemia and prostate cancer s/p radical prostatectomy complicated by recurrence s/p XRT in April 2025 with chronic Ingram who presented with blood around his Ingram
catheter and pain. The Ingram catheter was exchanged in the ER however CBI was unable to be performed. Urology consulted who brought the patient to the OR and cystoscopy with clot evacuation and fulguration of bleeding points was performed.
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 Patient was managed on the floor with urology following, and patient was getting CBI. Today on 08/24, patient's urine was becoming bloody with downtrending hemoglobin. CT
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 Patient brought back to the OR and a cystoscopy with clot evacuation with bladder neck fulguration and open
exploration/repair of bladder dome perforation was performed with suprapubic tube placement. Patient received 1 unit PRBC transfusion in the OR. Patient transferred to the ICU postoperatively, and senior research fellow service consulted for additional
management/recommendations.
When I saw the patient he was resting in bed on CBI. Currently on 2 L/min nasal cannula and breathing comfortably. Patient's , Fartun, and daughter were both present at bedside, and all questions were answered. Patient currently denies chest
pain, SOB, abdominal pain, fevers or chills.
PMHx: DM type II, hypertension, hyperlipidemia, prostate cancer s/p resection approximately 10 years ago complicated by recurrence s/p XRT in April 2025
PSHx: Radical prostatectomy, questionable urethral stent placement
Past Medical History
Past Medical History: Other (Above as per HPI)
Past Surgical History: Other (Above as per HPI)
Social History
Tobacco: Non-smoker
Alcohol: None
Drug: None
Personal: ( = Fartun)
Living: With Family
Employment: Retired
Family History
Family History: Reviewed & Not Pertinent
Allergies / Home Medications
Allergies
Allergy/AdvReac Type Severity Reaction Status Date / Time
No Known Allergies Allergy Verified 08/22/25 09:22
Home Medications
�Medication �Instructions �Recorded �Confirmed �Last Taken �Type
atorvastatin 20 mg tablet 20 mg PO DAILY 08/22/25 Unknown History
enzalutamide 40 mg capsule (Xtandi) 160 mg PO DAILY 08/22/25 Unknown History
metformin 500 mg tablet 500 mg PO BID 08/22/25 Unknown History
oxybutynin chloride 5 mg tablet 5 mg PO Q8HPRN PRN urinary issues 08/22/25 Unknown History
phenazopyridine 200 mg tablet 200 mg PO TIDPRN PRN urinary pain 08/22/25 Unknown History
tamsulosin 0.4 mg capsule 0.4 mg PO DAILY 08/22/25 Unknown History
valsartan 160 mg tablet 160 mg PO DAILY 08/22/25 Unknown History
Review of Systems
-
History Source: Patient
All other systems: Negative unless noted
Vitals / Labs / Diagnostic Testing
Vital Signs
Temp Pulse Resp BP Pulse Ox
97.9 F 91 26 151/66 94
08/24/25 07:20 08/24/25 08:00 08/24/25 08:00 08/24/25 08:00 08/24/25 08:59
Lab Data
08/23/25 04:40
Diagnostic Testing:
Physical Exam
-
HEENT: Normocephalic and Anicteric
Cardiovascular: S1/S2 and Peripheral Edema (negative)
Respiratory: Wheeze (negative), Rales (negative), Rhonchi (negative) and Non-Labored Respirations
GI: Soft, Non Distended, Non Tender and Normal Bowel Sounds
Neurology: Awake, Alert and Tremors (negative)
Skin: Warm and Dry
General: Respiratory Distress (negative), Comfortable, Fever (negative), Chills (negative) and Other (Elderly AAM in NAD, on CBI)
Assessment
-
Assessment: 69-year-old male with a past medical history of DM type II, hypertension, hyperlipidemia and prostate cancer s/p radical prostatectomy complicated by recurrence s/p XRT in April 2025 with chronic Ingram who presented with blood around
his Ingram catheter and pain. The Ingram catheter was exchanged in the ER however CBI was unable to be performed. Urology consulted who brought the patient to the OR and cystoscopy with clot evacuation and fulguration of bleeding points was
performed. 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 Patient was managed on the floor with urology following, and patient was getting CBI. Today on 08/24, patient's urine was becoming bloody with downtrending hemoglobin.
CT abdomen/pelvis performed showing acute extraperitoneal urinary bladder rupture with a 6.1 cm urinoma in the left retroperitoneum. Patient brought back to the OR and a cystoscopy with clot evacuation with bladder neck fulguration and open
exploration/repair of bladder dome perforation was performed with suprapubic tube placement. Patient received 1 unit PRBC transfusion in the OR. Patient transferred to the ICU postoperatively, and senior research fellow service consulted for additional
management/recommendations.
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
Impression:
#Radiation cystitis and bladder perforation s/p cystoscopy with open exploration/repair of bladder perforation and suprapubic catheter placement (OR date: 08/24/2025)
#Acute anemia due to hematuria
#Leukocytosis
#Hyponatremia
#Metastatic prostate cancer s/p radical prostatectomy with recurrence s/p XRT (April 2025)
#DM type II
#Hypertension/hyperlipidemia
Plan:
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
- Patient underwent cystoscopy with open exploration/repair of bladder perforation and suprapubic tube placement
- EBL was 50 cc and there were no complications
- Intraoperative findings showed moderate amount of clot in the bladder which was irrigated out cystoscopically, also bleeding points at the bladder neck were fulgurated and a small perforation noted at the dome of bladder. Abdominal exploration
performed and bladder perforation repaired with a suprapubic tube placed
- Continue postoperative management as per urology
- Pain control
- Continue CBI per Urology (urine currently fruit punch color)
- Continue with antibiotics (currently on Rocephin)
- If patient spikes a fever then would saucedo-Cx and broaden Abx further
- Trend WBC and monitor temperature curve
- Maintain SpO2 >90-94%, weaning down supplemental O2 as tolerated
- Maintain MAP>65
- Replete electrolytes with K>4, Mg>2
- Maintain euglycemia with goal BG 140-180
- Trend H/H and transfuse if needed to keep Hb>7-8g/dL; keep plt>50k (given post-op status and hematuria)
- prn nebulized bronchodilators - not currently bronchospastic
- Incentive spirometer encouraged 10x per hour for at least 4 hrs a day
- DVT ppx: SCDs
Continue ICU level of care given bladder perforation with continued hematuria s/p OR on CBI with high risk for circulatory shock. If patient doing well by tomorrow, then can likely downgrade at that time, if urology in agreement.
Critical care statement: A total of 38 minutes of critical care time was provided for this patient today. This includes management of unstable vital signs, evaluation of the patient at bedside, reviewing the patient's pertinent medical records
including radiographs, microbiology, laboratory evaluations, and discussion with primary team, consultants, pharmacy, nutrition, physical therapy, case management, charge nurse, critical care nursing, and respiratory therapy.
Data:
CT abdomen/pelvis without contrast 08/24/2025:
1. ACUTE EXTRAPERITONEAL URINARY BLADDER RUPTURE with a large amount of air and a small amount of fluid in the extraperitoneal space anterior to the urinary bladder tracking anteriorly and superiorly to the umbilicus along the median umbilical
ligament (urachus).
2. 6.1 cm URINOMA in the LEFT RETROPERITONEUM anterior to the left psoas muscle.
3. Mild to moderate diffuse urinary bladder wall thickening, moderate air in the urinary bladder lumen, and Ingram catheter in place.
4. Recent prostatectomy and pelvic lymphadenectomy.
5. Moderate diverticulosis in the descending and sigmoid colon.
6. Mild chronic bilateral renal disease.
7. Small bilateral adrenal adenomas.
--- NOTE | 2025-08-24 11:43 | PTCARENOTE ---
Pt family here in lobby below IMU PACU called and asked to relay to DR Ansari.
[2025-08-24 13:02] LABS: Glucose - Point of Care 178 mg/dl (70-99)
--- NOTE | 2025-08-24 13:06 | W.IMMPOSTOP ---
Surgical Immed Post Op Note
-
Primary Surgeon:
yg
Assisting Surgeon:
ruenes
Pre-op Diagnosis:
xrt cystits and bladder perf
Post-op Diagnosis:
same
Procedure Performed:
cysto/clot evac/fulguration with open exploration/repair of bladder perf and sp tube placement
Anesthesia Type:
gen
Specimen / Cultures:
Estimated Blood Loss:
50cc
Complications:
none
Operative Findings:
moderate amount of clot in bladder- irrigated out cystoscopically
bleeding points at bladder neck fulgurated
small perf noted at dome
abd exploration performed- bladder perf repaired- sp tube placed
to ICU
updated family in person on operative findings/potential complications
spoke with hospitalist
pt did receive 1 unit of PRBC's
[2025-08-24] MEDS: ROCEPHIN IV (13:48)
[2025-08-24 13:52] LABS: Hematocrit 29.0 % (39.0-52.0); Hemoglobin 9.6 g/dL (13.0-18.0); Mean Corp Hgb Conc. 33.1 g/dL (33.0-37.0); Mean Corpuscular Volume 81.2 fL (80.0-94.0); Platelet Count 228 10^3/uL (130-400); Red Cell Dist. Width 13.6 % (11.5-14.5)
[2025-08-24 14:00] LABS: Blood Urea Nitrogen 9 mg/dl (9-20); Calcium 8.1 mg/dl (8.4-10.2); Carbon Dioxide 25 mmol/L (22-30); Chloride 105 mmol/L (98-107); Estimated Creatinine Clearance 91 ml/min; Glucose 162 mg/dl (70-99); Potassium 4.3 mmol/L (3.5-5.1); Sodium 132 mmol/L (135-145); eGFR > 60.00
[2025-08-24] MEDS: STERILE WATER FOR INJECTION IV (14:28)
[2025-08-24] MEDS: FERRLECIT 110 MG IV (14:31)
--- NOTE | 2025-08-24 14:50 | PTCARENOTE ---
Rec'd pt at approx 1420 from PACU. Pt AAOx3, follows commands, BELLAMY. Monitor SR. Lungs CTA, pox 94% 2LNC. +hypo BS. Abd soft. Lower abdominal dressing C/D/I. Suprapubic in place with CBI solution infusing, output from danielle clear orange. Family at
bedside. Pt sleeping comfortably at this time. Left radial a-line zeroed to monitor.
--- NOTE | 2025-08-24 15:20 | PTCARENOTE ---
ec'd pt at approx 1420 from PACU. Pt AAOx3, follows commands, BELLAMY. Monitor SR. Lungs CTA, pox 94% 2LNC. +hypo BS. Abd soft. Lower abdominal dressing C/D/I. Suprapubic in place with CBI solution infusing, output from danielle clear pink/light punch.
Family at bedside. Pt sleeping comfortably at this time. Left radial a-line zeroed to monitor.
[2025-08-24] MEDS: NOVOLOG FLEXPEN-LOW RESISTANCE 1 UNITS SC (16:22)
[2025-08-24 16:37] LABS: Glucose - Point of Care 185 mg/dl (70-99)
--- NOTE | 2025-08-24 17:29 | W.PN.UPDATE ---
Update Note
Progress Note Update
pt stable
awake and resting comfortably
minimal drain output
urine pyridium colored with mod drip cbi
labs reviewed- na low as expected/ hgb stable
again reviewed course/etc with pt and family
continue ICU monitoring
--- NOTE | 2025-08-24 17:36 | PTCARENOTE ---
No changes in pt assessment. CBI continues infusing via suprapubic cath, urine output via danielle clear pink/orange. Family remains at bedside. Left abd AMANDA with small amt sang drainage to bulb.
--- NOTE | 2025-08-24 20:04 | PTCARENOTE ---
Assumed care of patient at 1900. Patient AAOx3, drowsy - awakens to voice. SR on the monitor. POX 93% on 2LNC - lungs diminished throughout bilaterally. Hypoactive bowel sounds. Abdomen soft/round/obese/tender. Lower abdominal dressings C/D/I. AMANDA
drain to left abdomen w/ minimal amount of sanguineous output. Suprapubic w/ CBI solution infusing. Ingram w/ pink/punch/orange colored urine. LAC + RH IVs capped. L radial A-line zeroed.
[2025-08-24] MEDS: LR 1000 IV (20:27)
[2025-08-24 20:49] LABS: Hematocrit 28.0 % (39.0-52.0); Hemoglobin 9.4 g/dL (13.0-18.0)
[2025-08-24 20:59] LABS: INR 1.12; PT 14.5 Sec (11.4-14.6)
[2025-08-24 21:00] LABS: APTT 37.3 Sec (23.4-35.0)
[2025-08-24 21:11] LABS: Blood Urea Nitrogen 9 mg/dl (9-20); Calcium 8.5 mg/dl (8.4-10.2); Carbon Dioxide 26 mmol/L (22-30); Chloride 107 mmol/L (98-107); Estimated Creatinine Clearance 91 ml/min; Glucose 157 mg/dl (70-99); Magnesium 2.2 mg/dl (1.6-2.3); Potassium 4.4 mmol/L (3.5-5.1); Sodium 134 mmol/L (135-145); eGFR > 60.00
[2025-08-24] MEDS: TUMS CHEWABLE TABLET 400 MG PO (22:59)
[2025-08-24 23:59] LABS: Glucose - Point of Care 132 mg/dl (70-99)
[2025-08-25 00:01] VITALS: BP 129/67
--- NOTE | 2025-08-25 01:01 | PTCARENOTE ---
No changes in patient assessment. CBI infusing through suprapubic cath. Ingram w/ clear yellow/orange output.
[2025-08-25 01:14] VITALS: BP 133/54
[2025-08-25] MEDS: DILAUDID 0.5 MG IV ×4 (01:38→08:27)
[2025-08-25] MEDS: MYLICON 80 MG PO (04:28)
[2025-08-25 04:33] VITALS: BP 149/59
[2025-08-25 04:41] LABS: Hematocrit 27.5 % (39.0-52.0); Hemoglobin 8.9 g/dL (13.0-18.0); Mean Corp Hgb Conc. 32.4 g/dL (33.0-37.0); Mean Corpuscular Volume 81.4 fL (80.0-94.0); Nucleated Red Blood Cells % 0 % (-); Platelet Count 237 10^3/uL (130-400); Red Cell Dist. Width 13.5 % (11.5-14.5)
[2025-08-25 05:12] LABS: ALT (SGPT) 14 U/L (0-50); AST (SGOT) 16 U/L (17-59); Albumin 2.8 g/dl (3.5-5.0); Alkaline Phosphatase 67 U/L (38-126); Blood Urea Nitrogen 9 mg/dl (9-20); Calcium 8.7 mg/dl (8.4-10.2); Carbon Dioxide 29 mmol/L (22-30); Chloride 106 mmol/L (98-107); Estimated Creatinine Clearance 91 ml/min; Glucose 114 mg/dl (70-99); Potassium 4.2 mmol/L (3.5-5.1); Sodium 134 mmol/L (135-145); Total Protein 5.6 g/dl (6.3-8.2); eGFR > 60.00
[2025-08-25 05:55] VITALS: BMI 32.3
[2025-08-25 06:04] LABS: Glucose - Point of Care 110 mg/dl (70-99)
[2025-08-25] MEDS: LR 1000 IV (06:04)
--- NOTE | 2025-08-25 06:16 | PTCARENOTE ---
No changes in patient assessment. CBI infusing through suprapubic cath. Ingram w/ clear yellow/orange output. After providing CHG bath, patient complaining of pain - no PRN medication due. [employer] notified - one time dose of IV Dilaudid ordered and
administered - see NOV.
--- NOTE | 2025-08-25 06:57 | W.PN.URO.CBU ---
Today's Communication / Plan
-
as above
Assessment / Plan
-
met prostate cancer
retention/hematuria and xrt cystitis
bladder perforation
s/p cysto/clot evac and fulguration 08/22
s/p bladder perforation repair 08/24
1) - stable- no acitve bleeding- continue cbi- wean- continue danielle and sp tube and carmen
2) CV- stable
3) Heme- hgb low but stable and no active bleeding at this time- trend hgb- hold transfusion for now- no blood thinners
4) GI- advance to clears- continue gi regimen- add pepcid
5) ID- on rocephin- track wbc
to remain in ICU today
Diagnosis
-
Date of Service: August 25, 2025
-
Patient Diagnosis:
xrt cystitis/hematuria
met prostate cancer
BLADDER PERFORATION
Post Op Day:
cysto/clot evac and fulguration 08/22
cysto/clot evac/fulguration and repair of bladder perf and sp tube placement 08/24
Subjective
-
pt says he feels the best he has since admit
urine clear on moderate frip cbi
wbc up as expected- hgb low but stable/ na improving/ cr stable
minimal carmen output
Objective
-
Vital Signs
Temp Pulse Resp BP Pulse Ox
98.2 F 79 19 149/59 97
08/25/25 04:30 08/25/25 06:30 08/25/25 06:30 08/25/25 04:33 08/25/25 06:30
Intake and Output
08/23/25 08/24/25 08/25/25
06:59 06:59 06:59
Intake Total 3180 / 3180 1310 / 1310 1260 / 1260
Output Total 950 / 950 2500 / 2500 3905 / 3905
Balance 2230 / 2230 -1190 / -1190 -2645 / -2645
Intake:
Oral fluids 1680 / 1680 1200 / 1200
IV fluids (Total) 1500 / 1500 1150 / 1150
Lr 1,000 ml @ 100 mls/hr IV . 1000 / 1000
Q10H ALEXANDREA Rx#:[id number]
NSS 100 / 100
Normosol 150 / 150
IV piggybacks 110 / 110 110 / 110
Output:
Drain Output (Total) 45 / 45
Left Lower Abdomen Chirag- 45 / 45
[place]
Urine, Danielle 300 / 300
True Urine Output from CBI 650 / 650 2500 / 2500 3860 / 3860
Laboratory Results
08/25/25 04:12
08/25/25 04:12
Review of Systems
-
Constitutional: Fatigue
Respiratory: No Symptoms
Cardiac: No Symptoms
Abdomen/GI: Abdominal Pain (mild)
Physical Exam
-
General - no acute distress
Abdomen - soft, expected tenderness- sp tube and carmen in place
Genitalia - normal- danielle in place
Skin - warm & dry with no rash
Neuro - AOx3, no motor deficits
Extremities - no clubbing, no cyanosis, no edema
Dressing - clean, dry, intact
--- NOTE | 2025-08-25 07:15 | W.PN.INTV ---
Today's Communication / Plan
Recommendations
Doing well, not on pressors
Pain regiment, will add PO regiment and breakthrough dosing
Abx ongoing, if culture negative- can d/c
Further postop management per team
Can transfer to floors per team, follow Uro recs
Assessment
-
69-year-old male with a past medical history of DM type II, hypertension, hyperlipidemia and prostate cancer s/p radical prostatectomy complicated by recurrence s/p XRT in April 2025 with chronic Ingram who presented with blood around his Ingram
catheter and pain. The Ingram catheter was exchanged in the ER however CBI was unable to be performed. Urology consulted who brought the patient to the OR and cystoscopy with clot evacuation and fulguration of bleeding points was performed.
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 Patient was managed on the floor with urology following, and patient was getting CBI. Today on 08/24, patient's urine was becoming bloody with downtrending hemoglobin. CT
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 Patient brought back to the OR and a cystoscopy with clot evacuation with bladder neck fulguration and open
exploration/repair of bladder dome perforation was performed with suprapubic tube placement. Patient received 1 unit PRBC transfusion in the OR. Patient transferred to the ICU postoperatively, and cytology supervisor service consulted for additional
management/recommendations.
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
Impression:
#Radiation cystitis and bladder perforation s/p cystoscopy with open exploration/repair of bladder perforation and suprapubic catheter placement (OR date: 08/24/2025)
#Acute anemia due to hematuria
#Leukocytosis
#Hyponatremia
#Metastatic prostate cancer s/p radical prostatectomy with recurrence s/p XRT (April 2025)
#DM type II
#Hypertension/hyperlipidemia
Plan:
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
- Patient underwent cystoscopy with open exploration/repair of bladder perforation and suprapubic tube placement
- EBL was 50 cc and there were no complications
- Intraoperative findings showed moderate amount of clot in the bladder which was irrigated out cystoscopically, also bleeding points at the bladder neck were fulgurated and a small perforation noted at the dome of bladder. Abdominal exploration
performed and bladder perforation repaired with a suprapubic tube placed
Continue postoperative management as per urology
- Pain control-- will add PO regiment
- Continue CBI per Urology (urine currently fruit punch color)
- Continue with antibiotics (currently on Rocephin)
- If patient spikes a fever then would saucedo-Cx and broaden Abx further
- Trend WBC and monitor temperature curve
Urine cx to be sent, if negative can d/c abx
- Maintain SpO2 >90-94%, weaning down supplemental O2 as tolerated
- Maintain MAP>65
- Replete electrolytes with K>4, Mg>2
- Maintain euglycemia with goal BG 140-180
- Trend H/H and transfuse if needed to keep Hb>7-8g/dL; keep plt>50k (given post-op status and hematuria)
- prn nebulized bronchodilators - not currently bronchospastic
- Incentive spirometer encouraged 10x per hour for at least 4 hrs a day
- DVT ppx: SCDs
Data:
CT abdomen/pelvis without contrast 08/24/2025:
1. ACUTE EXTRAPERITONEAL URINARY BLADDER RUPTURE with a large amount of air and a small amount of fluid in the extraperitoneal space anterior to the urinary bladder tracking anteriorly and superiorly to the umbilicus along the median umbilical
ligament (urachus).
2. 6.1 cm URINOMA in the LEFT RETROPERITONEUM anterior to the left psoas muscle.
3. Mild to moderate diffuse urinary bladder wall thickening, moderate air in the urinary bladder lumen, and Ingram catheter in place.
4. Recent prostatectomy and pelvic lymphadenectomy.
5. Moderate diverticulosis in the descending and sigmoid colon.
6. Mild chronic bilateral renal disease.
7. Small bilateral adrenal adenomas.
Critical care statement: A total of 45 minutes of critical care time was provided for this patient today. This includes management of unstable vital signs, evaluation of the patient at bedside, reviewing the patient's pertinent medical records
including radiographs, microbiology, laboratory evaluations, and discussion with primary team, consultants, pharmacy, nutrition, physical therapy, case management, charge nurse, critical care nursing, and respiratory therapy.
Subjective Dataa
Subjective Data
Date of Service:
Date of Service: August 25, 2025
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
Subjective:
Pain at site of AMANDA, otherwise doing well
Not on pressors, stable on RA
Objective Data
Data Reviewed
Vital Signs / I&O / Oxygen:
Vital Signs
Temp Pulse Resp BP Pulse Ox
98.2 F 79 19 149/59 97
08/25/25 04:30 08/25/25 06:30 08/25/25 06:30 08/25/25 04:33 08/25/25 06:30
Intake and Output
08/24/25 08/25/25 08/26/25
06:59 06:59 06:59
Intake Total 1310 / 1310 1260 / 1260
Output Total 2500 / 2500 3905 / 3905
Balance -1190 / -1190 -2645 / -2645
SaO2 97
Nasal Cannula flow liters per 2
minute
Physical Exam
General: Comfortable and Other (NAD)
HEENT: Normocephalic, Anicteric and Moist Mucous Membranes
Cardiovascular: S1-S2 and Regular Rhythm
Respiratory: Clear and Non-Labored Respirations
GI: Soft, Non Distended and Non Tender
Neurology: Awake, Alert, Oriented and No Motor Deficits
Skin: Warm, Dry and Good Color
Labs/Micro/Reports
Lab Data
08/25/25 04:12
08/25/25 04:12
Laboratory Results
08/24/25
20:40
PT 14.5
INR 1.12
APTT 37.3 H
--- NOTE | 2025-08-25 08:00 | PTCARENOTE ---
Received pt with CBI via suprapubic tube and exiting via indwelling Ingram catheter. He is awake and alert. He is experiencing moderate to sever discomfort in his lower abdominal area. Left AMANDA drain with scant amount of serous fluid. AMANDA drain
stripped, pt then experienced sudden severe pain in the LLQ. AMANDA with unchanged drainage, Ingram catheter with bright yellow urine draining. Right hand #18g protective catheter with LR@100ml/hr. Left AC#20g protective catheter flushed. Good peripheral
pulses. Knee-Hi Teds/scd's intact. Bulky ABD dressing across his lower abdomen CDI. Hypoactive BSX4. Abdomen large, distended, tender to palpation. Lungs CTA. Pulse ox 96% w/2 liters nasal cannula. He was informed of the plan of care and pain
management plan. He verbalized his understanding. Safe environment maintained.
[2025-08-25] MEDS: VALIUM INJECTION 5 MG IV ×4 (08:07→22:47)
[2025-08-25] MEDS: FLOMAX 0.4 MG PO (08:10)
[2025-08-25] MEDS: DITROPAN 5 MG PO ×2 (08:10→19:28)
[2025-08-25] MEDS: VITAMIN B-12 1000 MCG PO (08:10)
[2025-08-25] MEDS: COLACE 100 MG PO ×2 (08:10→19:28)
[2025-08-25] MEDS: DIOVAN 160 MG PO (08:10)
[2025-08-25 08:13] VITALS: BP 127/52
[2025-08-25] MEDS: PEPCID 20 MG PO ×2 (08:28→19:28)
[2025-08-25 09:34] LABS: Glucose - Point of Care 117 mg/dl (70-99)
[2025-08-25] MEDS: TYLENOL 650 MG PO ×4 (09:35→19:28)
[2025-08-25] MEDS: NOVOLOG FLEXPEN-LOW RESISTANCE SC ×3 (09:35→16:35)
--- NOTE | 2025-08-25 09:47 | PTCARENOTE ---
Pt continues to have pain. Tylenol administered. He asked if he could have a higher dose of Hydromorphone. I informed him that I would ask the Urologist. His daughter is at the bedside.
--- NOTE | 2025-08-25 10:14 | PTCARENOTE ---
Dr. Ansari notified via TT @ [phone] regarding his increased pain after I had stripped his left lower abdominal AMANDA drain this morning with my assessment. I just spoke with him over the phone as well explaining how 0.5mg hydromorphone is not lasting and
that he had requested a higher dosage. There is no hematuria, no abdominal distension, and AMANDA drain with scant amount of serous fluid. Pt aware Dr. Ansari was notified and will be here shortly.
--- NOTE | 2025-08-25 11:04 | PTCARENOTE ---
s/p noncontrast of his abdomen/pelvis w/CBI. He tolerated it well. AMANDA drain unchanged with scant mount of blood tinged serous fluid. Ingram catheter with yellow urine. Improved abdominal discomfort. He is aware he is to wait to drink clears until CT
scan is reported.
--- NOTE | 2025-08-25 11:28 | W.PN.HOSP.TC ---
Today's Communication/Plan
-
COnt Abx
pendign UA
folow CT results
follow H&H
Assessment / Plan
Assessment / Plan
69yo M with PMHx of DM, HTN, HLD, prostate CA s/p resection appr 10 years ago, then recurrence and RT course in april 2025 developed acute urinary retention, that initially self resolved while admitted to [place] 1 week ago, then redeveloped it at
home and had Jimenez placed in [place]. Later noticed absent flow in Jimenez and urine coming out around it with subsequent beeding, so can back to the hospital, was started on Keflex, however due to continued symptoms presented to ED. found
hematuria with clot obstructing Jimenez. Catheter replaced and CBI started. Had cystoscopy on admission on 08/23/25 with clot evacuation and fulguration of bleeding points, later found Acute retroperitoneal urinary bladder rupture
A/P:
#Acute urinary retention
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
#Possible CAUTI
#Acute retroperitoneal urinary bladder rupture
CT on 08/24/25 - with a large amount of air and a small amount of fluid in the extraperitoneal space anterior to the urinary bladder tracking anteriorly and superiorly to the umbilicus along the median umbilical ligament (urachus).
s/p epair of bladder perforation and suprapubic tube placement on 08/25/25 by urology
ICU mgmt
Serial H&H and transfuse as needed
COnt Ceftriaxone
Pyridium and Oxybutynin due to bladder spasms and pain
Tamsulosin
COnt Rocephin as discussed with urology due to bladder perf. UA now pending
NPO postOP, start IVF D5
##Abdominal pain
postOP
CT abd/pelvis on 08/25/25 to be repeated as per urology
#ANJU
IV iron
#HLD
#Essential HTN
cont home meds
#DM type 2 with unspecified complications
Accuchecks, Insulin SS, DM diet
hold metformin
#b/l gynecomastia
advise weight loss
#bl adrenal adenoma
outpatient w/u for hormonal excess
#Diverticulosis w/o diverticulitis
high fiber diet
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
measuring 2.6 x 1.3 x 1.8 cm in size which could be a bone infarct
DVT ppx SCDs
FUll code
I have spent at least 60min critical care time reviewing chart, test results, communication with consultants and providing direct patient care
Anticipated Discharge: > 48 hours
Subjective/Interval History
-
Date of Service: August 25, 2025
Objective Data
-
Labs:
Laboratory Results
08/25/25
04:12
WBC 16.8 H
Hgb 8.9 L
Hct 27.5 L
Plt Count 237
Sodium 134 L
Potassium 4.2
Chloride 106
Carbon Dioxide 29
BUN 9
Creatinine 0.8
Glucose 114 H
Calcium 8.7
Total Bilirubin 0.6
AST 16 L
ALT 14
Alkaline Phosphatase 67
Vital Signs:
Vital Signs
Temp Pulse Resp BP Pulse Ox
98 F 73 15 127/52 97
08/25/25 07:19 08/25/25 09:00 08/25/25 09:00 08/25/25 08:13 08/25/25 09:00
I&O
08/24/25 08/25/25 08/26/25
06:59 06:59 06:59
Intake Total 1310 / 1310 1260 / 1360 640 / 640
Output Total 2500 / 2500 3905 / 3905 300 / 300
Balance -1190 / -1190 -2645 / -2545 340 / 340
Review of Systems
-
History Source: Patient
All other systems: Reviewed and negative
Abdomen/GI: Reports Abdominal Pain
Physical Exam
-
General: No Apparent Distress
HEENT: Normocephalic
Respiratory: Clear to Auscultation
Cardiac: Regular Rhythm
GI: Distended and Other (AMANDA drain with serosanguinous output)
Musculoskeletal: No Clubbing, No Cyanosis and No Edema
Neuro: Awake, Alert, Oriented and AO x 3
Psych: Calm
[2025-08-25 11:38] LABS: Urine Character Clear (Clear)
[2025-08-25 11:43] LABS: Urine Squamous Cell 0-2 /LPF (Few)
[2025-08-25 11:44] LABS: Urine Red Blood Cell 30-40 /HPF (0-2)
[2025-08-25] MEDS: LIPITOR 20 MG PO (12:36)
[2025-08-25] MEDS: DILAUDID 1 MG IV ×3 (12:40→20:36)
[2025-08-25] MEDS: D5/0.9% SODIUM CHLORIDE 1000 IV (12:42)
--- NOTE | 2025-08-25 12:58 | CM ---
Initial assessment completed with patient who lives with his in a 2 story no basement home with B/B on 2nd, 2 steps to enter. 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 No DME. No in-home services. No HC-POA. No VA benefits.
PCP is Dr. Antonio Holley. Pharmacy is [facility] in [place]. Discharge POC: JACKIE RN. DH is preference. Referral forwarded.
[2025-08-25 13:22] LABS: Glucose - Point of Care 127 mg/dl (70-99)
[2025-08-25] MEDS: SENOKOT-S 1 TABLET PO (14:14)
[2025-08-25] MEDS: MIRALAX 17 GRAMS PO (14:14)
--- NOTE | 2025-08-25 15:15 | PTCARENOTE ---
[place] colored urine. CBI continued. S/P repositioning in the bed and PM care. Lungs remain CTA. Safe environment maintained.
[2025-08-25] MEDS: ROCEPHIN 1000 MG IV (15:16)
[2025-08-25] MEDS: STERILE WATER FOR INJECTION 10 ML IV (15:17)
[2025-08-25 16:35] LABS: Glucose - Point of Care 129 mg/dl (70-99)
--- NOTE | 2025-08-25 17:30 | PTCARENOTE ---
SBP via arterial line 200. Pt with pain and discomfort. Dr. Ansari at the bedside preparing to hand irrigate his Ingram catheter.
--- NOTE | 2025-08-25 17:38 | PTCARENOTE ---
Dr. Ansari at the bedside. He changed drainage bag due to large clot blocking drainage and hand irrigated at the bedside. Pt premedicated with Hydromorphone and Valium. He remained at the bedside and informed the pt and his family on the plan of
care regarding transfer.
--- NOTE | 2025-08-25 17:50 | W.PN.UPDATE ---
Update Note
Progress Note Update
events of today-
was called to see patient around noon- after carmen was manipulated- pt developed sig abd pain
went for stat CT- no evid of perf or leak or air
pt felt okay- urine was running clear
rechecked pt this pm- comfortable but urine again bloody- irrigated- no clot- some carmen leak with irrigation
cbi at high rate- urine alternative between clear and pink- carmen with minimal outpt
plan
check stat h/h
continue cbi to keep urine clear
given now rebleed and high liklihood of reperf- have rec transfer to [facility] for management
contacted dr santiago- he has accepted and will try and arrange in next 24hrs
reviewed with pt and family
[2025-08-25 18:00] LABS: Hematocrit 27.7 % (39.0-52.0); Hemoglobin 8.9 g/dL (13.0-18.0)
--- NOTE | 2025-08-25 18:52 | W.PN.UPDATE ---
Addendum entered and electronically signed by Angela Graff MD 08/25/25 19:03:
Correction, accepting physician will be Dr. Jose R Ellison. Will call [facility] transfer center at [phone].
Original Note:
Update Note
Progress Note Update
D/w Dr. Ansari, plan to transfer to [facility], urology service, accepting physician Dr. Robby Schroeder. Transfer forms filled and sent to floor. D/w CM and community health director, [facility] will call when bed available and then we will
set up transport.
[2025-08-25] MEDS: FERRLECIT 110 MG IV (19:40)
--- NOTE | 2025-08-25 21:01 | PTCARENOTE ---
Assumed care of patient at 1900. Patient AAOx3, anxious. SR on the monitor. POX 97% on 2LNC - lungs diminished throughout bilaterally. Hypoactive bowel sounds. Abdomen soft/round/obese/tender. Lower abdominal dressings C/D/I. AMANDA drain to left
abdomen w/ minimal amount of serosang output. Suprapubic w/ CBI solution infusing. Ingram w/ pink/yellow blood tinged urine. LAC IV capped. RH IV w/ D5NSS infusing as ordered - see NOV. L radial A-line zeroed.
[2025-08-25 21:59] LABS: Glucose - Point of Care 168 mg/dl (70-99)
[2025-08-26] VITALS (17 sets, daily range): BP systolic 108–188; BP diastolic 50–80; BMI 32.8
[2025-08-26] MEDS: TYLENOL 650 MG PO ×5 (00:23→20:53)
--- NOTE | 2025-08-26 01:00 | PTCARENOTE ---
Patient rang call rg and stated that he had the urge to urinate. CBI draining urine that ranged from punch to pink/red/yellow w/ no clots. Patient given PRN Valium - see MAR. Ingram irrigated. Two to three small to moderate sized clots removed from
catheter - patient stated the urge to urinate subsided. Patient rang call rg approximately one hour later and stated urge to void returned - no changes in CBI urine - CBI with good output. Attempted to irrigate Ingram again - no clots removed.
Patient stated urge to void gone after attempting to irrigate. CBI remains draining punch to pink/red/yellow urine. COMMUNICATION SPEC notified.
[2025-08-26] MEDS: MYLICON 80 MG PO (02:06)
[2025-08-26 03:25] LABS: Hematocrit 25.8 % (39.0-52.0); Hemoglobin 8.4 g/dL (13.0-18.0); Mean Corp Hgb Conc. 32.6 g/dL (33.0-37.0); Mean Corpuscular Volume 84.0 fL (80.0-94.0); Nucleated Red Blood Cells % 0 % (-); Platelet Count 240 10^3/uL (130-400); Red Cell Dist. Width 13.4 % (11.5-14.5)
[2025-08-26 03:54] LABS: ALT (SGPT) 13 U/L (0-50); AST (SGOT) 16 U/L (17-59); Albumin 2.5 g/dl (3.5-5.0); Alkaline Phosphatase 68 U/L (38-126); Blood Urea Nitrogen 8 mg/dl (9-20); Calcium 8.2 mg/dl (8.4-10.2); Carbon Dioxide 30 mmol/L (22-30); Chloride 103 mmol/L (98-107); Estimated Creatinine Clearance 91 ml/min; Glucose 158 mg/dl (70-99); Potassium 4.0 mmol/L (3.5-5.1); Sodium 134 mmol/L (135-145); Total Protein 5.2 g/dl (6.3-8.2); eGFR > 60.00
[2025-08-26] MEDS: TYLENOL PO ×3 (04:48→23:43)
[2025-08-26] MEDS: D5/0.9% SODIUM CHLORIDE 1000 IV ×2 (04:48→22:39)
--- NOTE | 2025-08-26 06:05 | PTCARENOTE ---
Addendum entered by Thomas Escobedo RN 08/26/25 06:08:
Patient's urine occasionally punch colored as well.
Original Note:
No changes in patient assessment. CBI infusing through suprapubic cath. Ingram w/ urine ranging anywhere from pink/yellow/orange output. Patient reports no further feeling of bladder pressure.
[2025-08-26] MEDS: TUMS CHEWABLE TABLET 400 MG PO (06:43)
[2025-08-26] MEDS: DILAUDID 1 MG IV ×5 (06:49→22:38)
--- NOTE | 2025-08-26 07:18 | W.PN.INTV ---
Today's Communication / Plan
Recommendations
Concern for bladder perf, accepted transfer at [facility] for OR 08/26
Add IV labetalol PRN for HTN
Pain management per team
Transfuse as indicated, monitor CBC
Family at bedside, aware of plan
Assessment
-
69-year-old male with a past medical history of DM type II, hypertension, hyperlipidemia and prostate cancer s/p radical prostatectomy complicated by recurrence s/p XRT in April 2025 with chronic Ingram who presented with blood around his Ingram
catheter and pain. The Ingram catheter was exchanged in the ER however CBI was unable to be performed. Urology consulted who brought the patient to the OR and cystoscopy with clot evacuation and fulguration of bleeding points was performed.
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 Patient was managed on the floor with urology following, and patient was getting CBI. Today on 08/24, patient's urine was becoming bloody with downtrending hemoglobin. CT
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 Patient brought back to the OR and a cystoscopy with clot evacuation with bladder neck fulguration and open
exploration/repair of bladder dome perforation was performed with suprapubic tube placement. Patient received 1 unit PRBC transfusion in the OR. Patient transferred to the ICU postoperatively, and porcelain enameler service consulted for additional
management/recommendations.
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
Impression:
#Radiation cystitis and bladder perforation s/p cystoscopy with open exploration/repair of bladder perforation and suprapubic catheter placement (OR date: 08/24/2025)
#Acute anemia due to hematuria
#Leukocytosis
#Hyponatremia
#Metastatic prostate cancer s/p radical prostatectomy with recurrence s/p XRT (April 2025)
#DM type II
#Hypertension/hyperlipidemia
Plan:
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
- Patient underwent cystoscopy with open exploration/repair of bladder perforation and suprapubic tube placement
- EBL was 50 cc and there were no complications
- Intraoperative findings showed moderate amount of clot in the bladder which was irrigated out cystoscopically, also bleeding points at the bladder neck were fulgurated and a small perforation noted at the dome of bladder. Abdominal exploration
performed and bladder perforation repaired with a suprapubic tube placed
Continue postoperative management as per urology
- Pain control-- will add PO regiment
- Continue CBI per Urology (urine currently fruit punch color)
Concern for bladder perf, transfer pending to [facility]
- Continue with antibiotics (currently on Rocephin)
- If patient spikes a fever then would saucedo-Cx and broaden Abx further
- Trend WBC and monitor temperature curve
Urine cx to be sent, if negative can d/c abx
- Maintain SpO2 >90-94%, weaning down supplemental O2 as tolerated
- Maintain MAP>65
- Replete electrolytes with K>4, Mg>2
- Maintain euglycemia with goal BG 140-180
- Trend H/H and transfuse if needed to keep Hb>7-8g/dL; keep plt>50k (given post-op status and hematuria)
- prn nebulized bronchodilators - not currently bronchospastic
- Incentive spirometer encouraged 10x per hour for at least 4 hrs a day
- DVT ppx: SCDs
Data:
CT abdomen/pelvis without contrast 08/24/2025:
1. ACUTE EXTRAPERITONEAL URINARY BLADDER RUPTURE with a large amount of air and a small amount of fluid in the extraperitoneal space anterior to the urinary bladder tracking anteriorly and superiorly to the umbilicus along the median umbilical
ligament (urachus).
2. 6.1 cm URINOMA in the LEFT RETROPERITONEUM anterior to the left psoas muscle.
3. Mild to moderate diffuse urinary bladder wall thickening, moderate air in the urinary bladder lumen, and Ingram catheter in place.
4. Recent prostatectomy and pelvic lymphadenectomy.
5. Moderate diverticulosis in the descending and sigmoid colon.
6. Mild chronic bilateral renal disease.
7. Small bilateral adrenal adenomas.
Critical care statement: A total of 41 minutes of critical care time was provided for this patient today. This includes management of unstable vital signs, evaluation of the patient at bedside, reviewing the patient's pertinent medical records
including radiographs, microbiology, laboratory evaluations, and discussion with primary team, consultants, pharmacy, nutrition, physical therapy, case management, charge nurse, critical care nursing, and respiratory therapy.
Subjective Dataa
Subjective Data
Date of Service:
Date of Service: August 26, 2025
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
Subjective:
Has pain at site of AMANDA, otherwise doing well
HTN noted
Objective Data
Data Reviewed
Vital Signs / I&O / Oxygen:
Vital Signs
Temp Pulse Resp BP Pulse Ox
98.3 F 73 17 133/54 96
08/26/25 03:39 08/26/25 06:30 08/26/25 06:30 08/26/25 05:42 08/26/25 06:30
Intake and Output
08/25/25 08/26/25 08/27/25
06:59 06:59 06:59
Intake Total 1260 / 1360 3920 / 3920
Output Total 3905 / 3905 7895 / 7895
Balance -2645 / -2545 -3975 / -3975
SaO2 96
Nasal Cannula flow liters per 2
minute
Physical Exam
General: Comfortable and Other (NAD)
HEENT: Normocephalic, Anicteric and Moist Mucous Membranes
Cardiovascular: S1-S2 and Regular Rhythm
Respiratory: Clear and Non-Labored Respirations
GI: Soft, Non Distended and Non Tender
Neurology: Awake, Alert, Oriented and No Motor Deficits
Skin: Warm, Dry and Good Color
Labs/Micro/Reports
Lab Data
08/26/25 03:11
08/26/25 03:11
--- NOTE | 2025-08-26 07:31 | W.PN.URO.CBU ---
Addendum entered and electronically signed by Melvin Ansari Jr., MD 09/04/25 14:32:
in response to billing inquiry
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 The exact timing or inciting event of the perforation is unknown.
Original Note:
Today's Communication / Plan
-
continue CBI
transfuse 1 unit
transfer when bed available
Assessment / Plan
-
met prostate cancer
retention/hematuria and xrt cystitis
bladder perforation
s/p cysto/clot evac and fulguration 08/22
s/p bladder perforation repair 08/24
NOW WITH RECURRENT BLEEDING/ABD PAIN- CT SCAN YESTERDAY AT NOON DID NOT REVEAL ANY REPERF/ETC
unfortunately- pt's urine continue to be bloody requiring periodic hand irrigation- this scenario represents a high risk for reperf which would be very difficult to manage
given this- reviewed with [facility] last pm- they have accepted in transfer when bed available- hopefully today with tentative saucedo for ileal loop diversion
reviewed extensively with family/pt last pm and this am- understand plan
today:
1) CV- stable
2) - continue cbi/drain- no evid of acute reperf at this time
3) HEME- slight downward hgb drift- given active bleeding and pending transfer- given 1 unit PRBC's today
4) ID- on empiric rocephin at this time
5) GI on bowel regimen- pt passing flatus/ on pepcid
Diagnosis
-
Date of Service: August 26, 2025
-
Patient Diagnosis:
xrt cystitis/hematuria
met prostate cancer
BLADDER PERFORATION
Post Op Day:
cysto/clot evac and fulguration 08/22
cysto/clot evac/fulguration and repair of bladder perf and sp tube placement 08/24
Subjective
-
see update note from last pm
pt has continued to alternate between somewhat clear urine and bloody urine with clots- did require gently hand irrigation last pm several times
this am- pt remains with pain- but on palp abd exam is stable and he feels may be a little less tender
urine currently is clear on high rate CBI
hgb down slightly/cr stable
drain output is minimal at this time
Objective
-
Vital Signs
Temp Pulse Resp BP Pulse Ox
98.3 F 73 17 133/54 96
08/26/25 07:21 08/26/25 06:30 08/26/25 06:30 08/26/25 05:42 08/26/25 06:30
Intake and Output
08/25/25 08/26/25 08/27/25
06:59 06:59 06:59
Intake Total 1260 / 1360 3920 / 3920
Output Total 3905 / 3905 7895 / 7895
Balance -2645 / -2545 -3975 / -3975
Intake:
Oral fluids 2069 / 2069
IV fluids (Total) 1150 / 1250 1740 / 1740
D5/0.9% Sodium Chloride 1,000 1140 / 1140
ml @ 60 mls/hr IV .[id number] ALEXANDREA
Rx#:[id number]
Lr 1,000 ml @ 100 mls/hr IV . 1000 / 1100 600 / 600
Q10H ALEXANDREA Rx#:[id number]
Normosol 150 / 150
IV piggybacks 110 / 110 110 / 110
Output:
Drain Output (Total) 45 / 45 45 / 45
Left Lower Abdomen Chirag- 45 / 45 45 / 45
[place]
True Urine Output from CBI 3860 / 3860 7850 / 7850
Laboratory Results
08/26/25 03:11
08/26/25 03:11
Review of Systems
-
Constitutional: Fatigue
Respiratory: No Symptoms
Cardiac: No Symptoms
Abdomen/GI: Abdominal Pain
: Other (bladder spasms)
Physical Exam
-
General - no acute distress- but uncomfortable
Abdomen - distended- but stable- no rebound or guarding
Genitalia - sp tube and urethral cath in place- high rate cbi- urine orange color
Skin - warm & dry with no rash
Neuro - AOx3, no motor deficits
Extremities - no clubbing, no cyanosis, no edema
Incision - clean, dry- dressing removed- changed
[2025-08-26] MEDS: DIOVAN 160 MG PO (08:59)
[2025-08-26] MEDS: PEPCID 20 MG PO ×2 (08:59→20:52)
[2025-08-26] MEDS: VITAMIN B-12 1000 MCG PO (08:59)
[2025-08-26] MEDS: COLACE 100 MG PO ×2 (08:59→20:52)
[2025-08-26] MEDS: FLOMAX 0.4 MG PO (09:00)
[2025-08-26] MEDS: DITROPAN 5 MG PO ×2 (09:00→20:52)
[2025-08-26] MEDS: LIPITOR 20 MG PO (09:00)
--- NOTE | 2025-08-26 09:00 | PTCARENOTE ---
pt awake and alert , NSR on monitor , BP adequate with roderick , on 2L NC with sat 98% , pt hemoglobin 8.4 , plan to give 1 uprbc , pt continues with 3 way bladder irrigation , seen by Dr Ansari this am, post op dressing changed by him , AMANDA with
scant amt of serosanguineous drainage , pt is planned for DC to [facility] for surgery
[2025-08-26] MEDS: NOVOLOG FLEXPEN-LOW RESISTANCE SC ×3 (09:06→17:05)
[2025-08-26 09:08] LABS: Glucose - Point of Care 142 mg/dl (70-99)
[2025-08-26] MEDS: DULCOLAX 10 MG RECTAL (10:01)
--- NOTE | 2025-08-26 10:26 | W.PN.HOSP.TC ---
Today's Communication/Plan
-
pending transfer to [facility]
s/p 1 unit PRBC - cont to follow H&H
Assessment / Plan
Assessment / Plan
69yo M with PMHx of DM, HTN, HLD, prostate CA s/p resection appr 10 years ago, then recurrence and RT course in april 2025 developed acute urinary retention, that initially self resolved while admitted to [place] 1 week ago, then redeveloped it at
home and had Jimenez placed in [place]. Later noticed absent flow in Jimenez and urine coming out around it with subsequent beeding, so can back to the hospital, was started on Keflex, however due to continued symptoms presented to ED. found
hematuria with clot obstructing Jimenez. Catheter replaced and CBI started. Had cystoscopy on admission on 08/23/25 with clot evacuation and fulguration of bleeding points, later found Acute retroperitoneal urinary bladder rupture had perforation
repair on 08/25/25, but hematuria persisted. Due to high risk for reocurence of perforation and since continued hematuria - advised to be transferred for further surgical mgmt in [facility]. Accepted on 08/25/25, awaiting bed
A/P:
#Acute urinary retention
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
#Possible CAUTI
#Acute retroperitoneal urinary bladder rupture
CT on 08/24/25 - with a large amount of air and a small amount of fluid in the extraperitoneal space anterior to the urinary bladder tracking anteriorly and superiorly to the umbilicus along the median umbilical ligament (urachus).
s/p repair of bladder perforation and suprapubic tube placement on 08/25/25 by urology
ICU mgmt
Serial H&H and transfuse as needed
COnt Ceftriaxone
Pyridium and Oxybutynin due to bladder spasms and pain
Tamsulosin
COnt Rocephin as discussed with urology due to bladder perf. UCx neg
CLD postOP, cont IVF D5
#Abdominal pain
postOP
CT abd/pelvis on 08/25/25 to be repeated as per urology - no new acute findings
#ANJU
IV iron
#HLD
#Essential HTN
cont home meds
#DM type 2 with unspecified complications
Accuchecks, Insulin SS, DM diet
hold metformin
#b/l gynecomastia
advise weight loss
#R adrenal adenoma
1.5 cm round mass arising in the inferior aspect of the right adrenal gland, which is likely a small adenoma. Lobulated appearance of the left adrenal gland suggestive of hyperplasia
outpatient w/u for hormonal excess
#Diverticulosis w/o diverticulitis
high fiber diet
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
measuring 2.6 x 1.3 x 1.8 cm in size which could be a bone infarct
DVT ppx SCDs
FUll code
I have spent at least 60min critical care time reviewing chart, test results, communication with consultants and providing direct patient care
Anticipated Discharge: Within 24 hours
Subjective/Interval History
-
Date of Service: August 26, 2025
Objective Data
-
Labs:
Laboratory Results
08/26/25
03:11
WBC 11.6 H
Hgb 8.4 L
Hct 25.8 L
Plt Count 240
Sodium 134 L
Potassium 4.0
Chloride 103
Carbon Dioxide 30
BUN 8 L
Creatinine 0.8
Glucose 158 H
Calcium 8.2 L
Total Bilirubin 0.5
AST 16 L
ALT 13
Alkaline Phosphatase 68
Vital Signs:
Vital Signs
Temp Pulse Resp BP Pulse Ox
98.6 F 71 18 147/54 96
08/26/25 10:02 08/26/25 10:02 08/26/25 10:02 08/26/25 10:08/26/25 06:30
I&O
08/25/25 08/26/25 08/27/25
06:59 06:59 06:59
Intake Total 1260 / 1360 3920 / 3920 0 / 0
Output Total 3905 / 3905 7895 / 7895
Balance -2645 / -2545 -3975 / -3975 0 / 0
Review of Systems
-
History Source: Patient
All other systems: Reviewed and negative
Physical Exam
-
General: No Apparent Distress
HEENT: Normocephalic
Respiratory: Clear to Auscultation
Cardiac: Regular Rhythm
GI: Soft and Tender
Musculoskeletal: No Clubbing, No Cyanosis and No Edema
Neuro: Awake, Alert, Oriented and AO x 3
Psych: Calm
--- NOTE | 2025-08-26 12:08 | W.DCSUMMARY ---
Discharge Summary
Discharge Data
Date of Admission: 08/22/25
Date of Discharge: 08/27/25
-
Pending Results: No
Hospital Course
69yo M with PMHx of DM, HTN, HLD, prostate CA s/p resection appr 10 years ago, then recurrence and RT course in april 2025 developed acute urinary retention, that initially self resolved while admitted to [place] 1 week ago, then redeveloped it at
home and had Jimenez placed in [place]. Later noticed absent flow in Jimenez and urine coming out around it with subsequent beeding, so can back to the hospital, was started on Keflex, however due to continued symptoms presented to ED. found
hematuria with clot obstructing Jimenez. Catheter replaced and CBI started. Had cystoscopy on admission on 08/23/25 with clot evacuation and fulguration of bleeding points, later found Acute retroperitoneal urinary bladder rupture had perforation
repair on 08/25/25, but hematuria persisted. Due to high risk for reocurence of perforation and since continued hematuria - advised to be transferred for further surgical mgmt in [facility]. Accepted on 08/25/25
I have spent at least 60min critical care time reviewing chart, test results, communication with consultants and providing direct patient care
Patient was managed for:
#Acute urinary retention
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
#Possible CAUTI
#Acute retroperitoneal urinary bladder rupture
#Abdominal pain
#ANJU
#HLD
#Essential HTN
#DM type 2 with unspecified complications
#b/l gynecomastia
#R adrenal adenoma
#Diverticulosis w/o diverticulitis
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
Discharge Plan
-
Patient Disposition: Acute Care Hospital
Condition: Fair
Discharge Orders:
Discharge Patient (As Directed); Ordered 08/26/25
Ordered By: Richardson Lazar
Discharge Date and Time
Discharge Date/Time: 08/27/25 02:05
Print Language: ICELANDIC
--- NOTE | 2025-08-26 12:25 | PN.CDI ---
CDI
- -
CDI:
Physician Documentation Request
Admit Date: 08/22/25 15:49
Dear Doctor Elan,
Please review the following and provide your response in the progress notes.
Clinical Indicators:
Pt admitted for clot retention due to xrt cystitis.
08/22 PROCEDURE: Cystoscopy, clot evacuation and fulguration of bleeding points.
'Within the bladder, there were
multiple arterial and venous bleeding points from hyper
vascularization due to radiation. Using the Bugbee electrode, these
were carefully fulgurated.'
08/24 PN: ' pt went for AM CT
unfortunately reveals suspected bladder perforation
reviewed with pt- proceed to OR for cysto and prob open exploration'
Please clarify the following:
Bladder perforation is a complication of the surgery
Bladder perforation is unexpected but is NOT a complication of the surgery
Other
Use of terms such as suspected, likely, concern for, or probable (associated with a specific diagnosis that is being evaluated, monitored, or treated as if it exists) are acceptable and can be coded in the inpatient setting, when documented at the
time of discharge.
Thank you,
Laura Jenkins RN, BSN
CDI Specialist
[place] [employer]
Please use your independent medical judgment in providing your response.
[2025-08-26 12:43] LABS: Glucose - Point of Care 128 mg/dl (70-99)
--- NOTE | 2025-08-26 12:45 | CM ---
F/U: Patient is being transferred to [facility] for surgery, IMM completed. PLAN: Transfer to other care facility.
[2025-08-26] MEDS: LASIX 20 MG IV (12:47)
[2025-08-26] MEDS: FERRLECIT 110 MG IV (13:01)
[2025-08-26] MEDS: ROCEPHIN 1000 MG IV (13:02)
[2025-08-26] MEDS: STERILE WATER FOR INJECTION 10 ML IV (13:02)
[2025-08-26] MEDS: MIRALAX 17 GRAMS PO (13:42)
[2025-08-26] MEDS: VALIUM INJECTION 5 MG IV (16:20)
[2025-08-26 17:06] LABS: Glucose - Point of Care 145 mg/dl (70-99)
--- NOTE | 2025-08-26 18:00 | PTCARENOTE ---
pt completed unit PRBC , continues with pain in abdomen , medicating with Dilaudid for relief , pt to transfer to [place] for surgery
--- NOTE | 2025-08-26 18:00 | PTCARENOTE ---
Addendum entered by Ewa Schmidt RN 08/26/25 19:41:
report called to Michael to receiving RN for transfer to room 888 , awaiting for [facility] ambulance for chicken picker around 7pm
Original Note:
report called to Michael for pending
[2025-08-26 19:59] LABS: Hematocrit 31.3 % (39.0-52.0); Hemoglobin 10.2 g/dL (13.0-18.0)
[2025-08-26 22:46] LABS: Glucose - Point of Care 138 mg/dl (70-99)
[2025-08-27] VITALS: BP 109/47
--- NOTE | 2025-08-27 | PTCARENOTE ---
no changes in pt assessment, awaiting transport pickle solution maker for tx to [facility].
[2025-08-27 01:00] VITALS: BP 127/50
--- NOTE | 2025-08-27 02:01 | PTCARENOTE ---
no changes, pt picked up by transport, en route to [facility].
--- NOTE | 2025-09-04 14:23 | PN.CDI ---
CDI
- -
CDI:
Physician Documentation Request
Admit Date: 08/22/25 15:49
Dear Doctor Elan,
Please review the following and provide your response in the progress notes.
Clinical Indicators:
Pt admitted for clot retention due to xrt cystitis.
08/22 PROCEDURE: Cystoscopy, clot evacuation and fulguration of bleeding points.
'Within the bladder, there were
multiple arterial and venous bleeding points from hyper
vascularization due to radiation. Using the Bugbee electrode, these
were carefully fulgurated.'
08/24 PN: ' pt went for AM CT
unfortunately reveals suspected bladder perforation
reviewed with pt- proceed to OR for cysto and prob open exploration'
Please clarify the following:
Bladder perforation is a complication of the surgery
Bladder perforation is unexpected but is NOT a complication of the surgery
Other
Use of terms such as suspected, likely, concern for, or probable (associated with a specific diagnosis that is being evaluated, monitored, or treated as if it exists) are acceptable and can be coded in the inpatient setting, when documented at the
time of discharge.
Thank you,
Laura Jenkins RN, BSN
CDI Specialist
[place] Text
Please use your independent medical judgment in providing your response.
== END 2025-08-27 02:05 | disposition short-term general hospital (02) | DRG 654 ==
LOC: ICU 15:49
PROVIDERS: Nurse Practitioner; Nurse Practitioner Family; Student in an Organized Health Care Education/Training Program; ADMITTING PHYSICIAN Hospitalist; ATTENDING PHYSICIAN Internal Medicine; CONSULT PHYSICIAN Internal Medicine Critical Care Medicine; CONSULT PHYSICIAN Specialist; EMERGENCY PHYSICIAN Student in an Organized Health Care Education/Training Program
PROC: 0TCB8ZZ Extirpation of Matter from Bladder, Via Natural or Artificial Opening Endoscopic (ICD-10-PCS; 2025-08-22)
PROC: 0W3R8ZZ Control Bleeding in Genitourinary Tract, Via Natural or Artificial Opening Endoscopic (ICD-10-PCS; 2025-08-22)
PROC: 0TCC8ZZ Extirpation of Matter from Bladder Neck, Via Natural or Artificial Opening Endoscopic (ICD-10-PCS; 2025-08-22)
PROC: 0TQB0ZZ Repair Bladder, Open Approach (ICD-10-PCS; 2025-08-24)
PROC: 0TQC4ZZ Repair Bladder Neck, Percutaneous Endoscopic Approach (ICD-10-PCS; 2025-08-24)
DX: N30.41 Irradiation cystitis with hematuria (principal); D62 Acute posthemorrhagic anemia; T83.511A Infection and inflammatory reaction due to indwelling urethral catheter, initial encounter; E87.1 Hypo-osmolality and hyponatremia; N99.71 Accidental puncture and laceration of a genitourinary system organ or structure during a genitourinary system procedure; Y84.2 Radiological procedure and radiotherapy as the cause of abnormal reaction of the patient, or of later complication, without mention of misadventure at the time of the procedure; R33.8 Other retention of urine; N32.89 Other specified disorders of bladder; E11.9 Type 2 diabetes mellitus without complications; I10 Essential (primary) hypertension; E78.5 Hyperlipidemia, unspecified; C61 Malignant neoplasm of prostate; K57.30 Diverticulosis of large intestine without perforation or abscess without bleeding
CPT/HCPCS: 51702; 71045; 74176; 80048; 80053; 81003; 81015; 82607; 82728; 82746; 82962; 83036; 83540; 83550; 83735; 84100; 84153; 85014; 85018; 85025; 85027; 85610; 85730; 86850; 86900; 86901; 86920; 87086; 93005; 96361; 96374; 96375; 99285; J2916; P9016